=== PATIENT | female | born 1950 | race Caucasian/White ===

== ENCOUNTER → 2020-08-13 16:58 | Outpatient (CLI) | payer OTHER, SELFPAY ==
--- NOTE | ~2020-08-13 | MR_ITS ---
EXAMINATION: MR cervical spine wo con DATE: 08/13/2020 18:17 INDICATION: Neck pain. Bilateral cervical radiculopathy. TECHNIQUE: Magnetic resonance imaging (MRI) of the cervical spine was performed without intravenous c ontrast. Sequences included sagittal T2-weighted FSE, sagittal STIR FSE, sagittal T1-weighted FSE, ax ial MERGE, and axial T2-weighted FSE. COMPARISON: Cervical spine MRI 01/09/2013 FINDINGS: There is 2 mm anterolisthesis of C5 on C6, 2 mm retrolisthesis of C6 on C7, and 2 mm yann listhesis of C7 on T1. There is 5 mm levocurvature of cervical spine. There is healed interbody fusio n at C6-C7 and C7-T1. Vertebral body heights are normal. There is mildly decreased disc height at C4- C5 and severely decreased disc height at C5-C6. The spinal cord signal intensity is normal. The follo wing disc levels are specifically discussed: C2-C3: The disc does not extend beyond the endplate margin. There is no uncovertebral joint osteoarth ritis. There is mild right facet joint osteoarthritis. There is ankylosis of left facet joint with mo derate hypertrophy. There is mild left neural foraminal stenosis. There is no central canal stenosis. C3-C4: The disc is bulging. There is mild bilateral uncovertebral joint osteoarthritis. There is luiza re bilateral facet joint osteoarthritis. There is moderate bilateral neural foraminal stenosis. There is mild central canal stenosis. C4-C5: The disc is bulging. There is severe right and moderate left uncovertebral joint osteoarthriti s. There is severe bilateral facet joint osteoarthritis. There is moderate and mild left neural jazmyne inal stenosis. There is mild central canal stenosis. C5-C6: The disc is bulging. There is severe bilateral uncovertebral joint osteoarthritis. There is se katelin bilateral facet joint osteoarthritis. There is moderate right and mild left neural foraminal samuel nosis. There is mild central canal stenosis with ventral indentation of spinal cord. C6-C7: There is no uncovertebral joint hypertrophy. There is moderate right facet joint osteoarthriti s. There is mild right neural foraminal stenosis. There is no central canal stenosis. C7-T1: There is no uncovertebral joint osteoarthritis. There is severe left facet joint osteoarthriti s. There is ankylosis of right facet joint with severe hypertrophy. There is moderate right and mild left neural foraminal stenosis. There is no central canal stenosis. IMPRESSION: 1. Severe cervical spondylosis. 2. Anterior fusion procedures at C6-C7 and C7-T1. Reviewed, dictated and finalized at location A. ING DIRECTOR
== END ==
PROVIDERS: PCP Family Medicine Adolescent Medicine; Visit Provider Family Medicine Adolescent Medicine
DX: M47.813 Spondylosis without myelopathy or radiculopathy, cervicothoracic region (principal); Z98.1 Arthrodesis status; M48.03 Spinal stenosis, cervicothoracic region
CPT/HCPCS: 72141

== ENCOUNTER 2020-08-15 06:53 | Outpatient (NON) | payer OTHER, SELFPAY ==
[2020-08-16 06:44] LABS: SARS-CoV-2 RNA PCR Negative
== END 2020-08-15 06:54 ==
PROVIDERS: PCP Family Medicine Adolescent Medicine; Visit Provider Family Medicine Adolescent Medicine
DX: R68.89 Other general symptoms and signs (principal); Z20.828 Contact with and (suspected) exposure to other viral communicable diseases
CPT/HCPCS: 87635; C9803; U0003

== ENCOUNTER 2020-08-27 15:11 | Outpatient (CLI) | payer OTHER, SELFPAY ==
--- NOTE | ~2020-08-27 | MM_ITS ---
EXAMINATION: MM screening cris BI w ani HISTORY: Screening mammogram TECHNIQUE: Craniocaudal and mediolateral oblique 3-D tomosynthesis images were obtained and synthetic 2-D images were generated. Bilateral rotated lateral cc views. CAD analysis was submitted and interp reted. COMPARISON: 02/13/2018 bilateral digital screening mammogram 12/25/2016 diagnostic right digital mammogram and limited right breast ultrasound 12/17/2016 bilateral digital screening mammogram BREAST PARENCHYMAL COMPOSITION: There are scattered areas of fibroglandular density. FINDINGS: There are scattered bilateral benign calcifications. There is no evidence of suspicious mas s, calcification, or architectural distortion to suggest malignancy in either breast. There has been no suspicious interval change. IMPRESSION: 1. No mammographic evidence of malignancy. 2. Recommend routine screening mammography in one year. BI-RADS Category 2: Benign finding(s). Reviewed, dictated and finalized at location A. 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
== END 2020-08-27 15:12 | disposition home or self-care (01) ==
PROVIDERS: PCP Family Medicine Adolescent Medicine; Visit Provider Family Medicine Adolescent Medicine
DX: Z12.31 Encounter for screening mammogram for malignant neoplasm of breast (principal)
CPT/HCPCS: 77063; 77067

== ENCOUNTER 2023-07-09 09:53 | Emergency (ER) | payer OTHER, SELFPAY ==
[2023-07-09 10:30] VITALS: BP 169/84; PULSE 67; RESP 14; TEMP 36.4; O2SAT 97
--- NOTE | 2023-07-09 12:33 | ED.EYEPROB ---
HPI - Eye Problem General Chief complaint: Eye Problems Stated complaint: eye irritation Time Seen by Provider: 07/09/23 12:30 Source: patient Mode of arrival: ambulatory Limitations: no limitations History of Present Illness HPI Narrative: 72 years old white female was shoveling mulch last night, somehow got poked to the right eye by sharp decoration in the backyard, causing bleeding for a few seconds. Patient denied vision change, complaining of discomfort at the lateral side of the right eye. Which causing slight right frontal headache. She denies any fever, chills, vision change, nausea or vomiting Related Data Home Medications Medication Instructions Recorded Confirmed B-complex with vitamin C 1 tablet PO DAILY 12/22/21 06/17/23 beta carotene 10,000 unit capsule 10,000 unit PO DAILY 12/22/21 06/17/23 cholecalciferol (vitamin D3) 125 125 mcg PO DAILY 12/22/21 06/17/23 mcg (5,000 unit) capsule lukipgbgxgc-kxw-hwquiuzft-hrb 1 tablet PO DAILY 12/22/21 06/17/23 149-hyalur 500 mg-500 mg-66.7 mg tablet (Xyitcbpsgmx-Ychbzqglnpn-JMX (with antiox)) loperamide 2 mg tablet 2 mg PO .6 PRN 12/22/21 06/17/23 (Anti-Diarrheal (loperamide)) magnesium oxide 420 mg tablet 420 mg PO DAILY 12/22/21 06/17/23 omega-3 fatty acids 1,000 mg 1,000 mg PO DAILY PRN 12/22/21 06/17/23 capsule turmeric root extract 500 mg 500 mg PO WEEKLY 12/22/21 06/17/23 capsule valacyclovir 500 mg tablet 500 mg PO DAILY 12/22/21 06/17/23 biotin 5,000 mcg sublingual tablet 5,000 mcg sublingual .PRN 09/29/22 06/17/23 multivitamin (Daily Multi-Vitamin 1 tablet PO .PRN 09/29/22 06/17/23 tablet) piroxicam 20 mg capsule See Rx Instructions .Route .COMPLEX 09/29/22 06/17/23 Allergies Allergy/AdvReac Type Severity Reaction Status Date / Time hydrocodone Allergy Severe SEVERE Verified 07/09/23 12:01 HEADACH, DOES NOTHING FOR PAIN meperidine Allergy Severe SWELLING, Verified 07/09/23 12:01 HIVES, DIZZINESS, DRY HEAVES, DELIRIOUS FEELINGS Sulfa (Sulfonamide Allergy Unknown HEART Verified 07/09/23 12:01 Antibiotics) RACE, SYNCOPE 05/07/11 aspirin AdvReac Severe SEVERE Verified 07/09/23 12:01 STOMACH propoxyphene AdvReac Severe DIZZY Verified 07/09/23 12:01 fluoxetine AdvReac Intermediate Diarrhea Verified 07/09/23 12:01 mirtazapine AdvReac Intermediate Drowsiness Verified 07/09/23 12:01 sertraline AdvReac Intermediate Diarrhea Verified 07/09/23 12:01 diclofenac AdvReac Unknown Unknown Verified 07/09/23 12:01 duloxetine AdvReac Unknown Unknown Verified 07/09/23 12:01 morphine AdvReac Unknown Unknown Verified 07/09/23 12:01 oxycodone AdvReac Unknown Unknown Verified 07/09/23 12:01 pregabalin AdvReac Unknown Unknown Verified 07/09/23 12:01 tolmetin AdvReac Unknown Unknown Verified 07/09/23 12:01 topiramate AdvReac Unknown Unknown Verified 07/09/23 12:01 DEXTROMETHORPHAN HBR Allergy Unknown palpatation Uncoded 07/09/23 12:01 s PHENYLEPHRINE HCL Allergy Unknown palpatation Uncoded 07/09/23 12:01 s PSEUDOEPHEDRINE HCL Allergy Unknown palpatation Uncoded 07/09/23 12:01 s Review of Systems Review of Systems: All systems reviewed & are unremarkable except as noted in HPI and below PMFSH Past Medical History Medical History History of diverticulosis History of vocal cord paralysis (~03/2013) Surgical History Surgical History History of bilateral breast reduction surgery History of cervical spinal surgery 1992 Decompression, 2013 History of hand surgery Right History of hysterectomy History of suburethral sling procedure 2013 History of surgical fusion joint Hx of removal of cyst (~2014) finger Family History Family History Mother Family history of cardiomyopathy Social History Social
[2023-07-09] MEDS: TETANUS,DIPHTHERIA,AC PERTUSSIS ADULT (0.5 ML) BOOSTRIX IM (12:59)
== END 2023-07-09 13:58 | disposition left against medical advice (07) ==
PROVIDERS: Emergency Provider Emergency Medicine; PCP Family Medicine Adolescent Medicine
DX: S05.91XA Unspecified injury of right eye and orbit, initial encounter (principal); Z23 Encounter for immunization; Z90.710 Acquired absence of both cervix and uterus; Z98.1 Arthrodesis status; Z87.891 Personal history of nicotine dependence; W22.8XXA Striking against or struck by other objects, initial encounter; Y93.H2 Activity, gardening and landscaping
CPT/HCPCS: 90471; 90715; 99283

== ENCOUNTER → 2023-10-01 12:55 | Outpatient (CLI) | payer OTHER, SELFPAY ==
--- NOTE | ~2023-10-01 | MM_ITS ---
EXAMINATION: MM screening [facility] BI w ani HISTORY: Screening mammogram TECHNIQUE: Craniocaudal and mediolateral oblique 3-D tomosynthesis images were obtained and synthetic 2-D images were generated. CAD analysis was submitted and interpreted. COMPARISON: 08/27/2020, 02/17/2018, 12/25/2016, 12/17/2016 BREAST PARENCHYMAL COMPOSITION: There are scattered areas of fibroglandular density. FINDINGS: No suspicious mass, calcification, or architectural distortion are identified in either babar ast to suggest malignancy. There has been no suspicious interval change. IMPRESSION: 1. No mammographic evidence of malignancy. 2. Recommend routine screening mammography in one year. BI-RADS Category 1: Negative Reviewed, dictated and finalized at location A. L SANDER
--- NOTE | ~2023-10-01 | DEXA_ITS ---
Bone Density Report Name: NEYMAR MONTANA Age: 73 Sex: Female Ethnicity: White Date of : 1950 Indication: postmenopausal; screening for osteoporosis; height loss; inflammatory bowel disease; history of glucocorticoids; hysterectomy; Referring Provider: MAKENZIE SAHU Study: Bone densitometry was performed. Exam Date: October 01, 2023 Accession number: [id number] Bone Density: Region BMD T-score Z-score Classification AP Spine (L1-L4) 1.598 5.0 7.4 Normal Femoral Neck (Left) 0.946 0.9 3.0 Normal Total Hip (Left) 1.157 1.8 3.6 Normal Femoral Neck (Right) 0.926 0.7 2.8 Normal Total Hip (Right) 1.159 1.8 3.6 Normal Total Hip Mean 1.158 1.8 3.6 Normal World Health Organization criteria for BMD impression classify patients as: Normal (T-score at or above -1.0), Osteopenia (T-score between -1.0 and -2.5), or Osteoporosis (T-score at or below -2.5). 10-year Fracture Risk: FRAX not reported because: All T-scores for Spine Total, Hip Total, Femoral Neck at or above -1.0 Previous Exams: Region Exam Age BMD T-score BMD Change BMD Change Date g/cm2 vs Baseline vs Previous AP Spine(L1-L4) 10/01/2023 73 1.598 5.0 0.241* 0.108* 12/17/2016 66 1.491 4.0 0.133* 0.078* 12/16/2012 62 1.413 3.3 0.055* 0.055* 10/12/2008 58 1.358 2.8 Total Hip(Left) 10/01/2023 73 1.157 1.8 0.080* 0.045* 12/17/2016 66 1.112 1.4 0.035* 0.046* 12/16/2012 62 1.066 1.0 -0.010 -0.010 10/12/2008 58 1.077 1.1 Total Hip(Right) 10/01/2023 73 1.159 1.8 0.078* 0.067* 12/17/2016 66 1.093 1.2 0.011 -0.043* 12/16/2012 62 1.136 1.6 0.054* 0.054* 10/12/2008 58 1.082 1.1 *Denotes significance at 95% confidence level, LSC for AP Spine = 0.022 g/cm2, LSC for Total Hip = 0.027 g/cm2 Clinical Information Provided by Patient: Has taken Glucocorticoids Has used the following medications: HRT (i.e. estrogen/hormone therapy), Vitamin D, Calcium, MTV Has the following medical conditions: Inflammatory bowel diseases, Hysterectomy, BUDESONIDE- FOR COLITIS Patient maximum height was 63.0 Menopause Age: 31 No regular weight bearing exercise Drinks caffeinated beverages Onset of menses at age 11 Number of children 2 Impression: The patient has normal bone mass. The
== END ==
PROVIDERS: PCP Family Medicine Adolescent Medicine; Visit Provider Family Medicine Adolescent Medicine
DX: Z12.31 Encounter for screening mammogram for malignant neoplasm of breast (principal); Z78.0 Asymptomatic menopausal state
CPT/HCPCS: 77063; 77067; 77080

== ENCOUNTER 2024-01-10 13:58 | Outpatient (CLI) | payer OTHER, SELFPAY ==
--- NOTE | ~2024-01-10 | XR_ITS ---
EXAMINATION: XR chest 2V Exam Date/Time: 01/10/2024 14:33 CDT HISTORY: R06.09 - Other forms of dyspnea Comparison: 08/19/2015, report only. RESULT: Lines, tubes, and devices: Interbody device in the lower cervical spine. Lungs and pleura: Clear. Cardiomediastinal silhouette: Stable. Other: No acute osseous or upper abdominal finding. IMPRESSION: No acute cardiopulmonary process. Reviewed, dictated and finalized at location K.
--- NOTE | ~2024-01-10 | MR_ITS ---
EXAMINATION: MR cervical spine wo con DATE: 01/10/2024 14:29 INDICATION: Numbness and paresthesias of the right hand. TECHNIQUE: Magnetic resonance imaging (MRI) of the cervical spine was performed without intravenous c ontrast. COMPARISON: None FINDINGS: There is 7 degrees levocurvature of cervicothoracic spine. There is 2 mm anterolisthesis of C4 on C5 and C5 on C6. There are changes of anterior fusion procedure at C6-C7 and C7-T1 with discec tomies and healed interbody bone graft. There is mildly decreased disc height at C4-C5 and severely d ecreased disc height at C5-C6. The spinal cord signal intensity is normal. The following disc levels are specifically discussed: C2-C3: The disc does not extend beyond the endplate margin. There is no uncovertebral joint osteoarth ritis. There is ankylosis of the facet facet joints with mild right and severe left hypertrophy. Ther e is mild left neural foraminal stenosis. There is no central canal stenosis. C3-C4: The disc is bulging. There is mild right and moderate left uncovertebral joint osteoarthritis. There is severe bilateral facet joint osteoarthritis. There is moderate bilateral neural foraminal s tenosis. There is mild central canal stenosis. C4-C5: The disc is bulging. There is severe bilateral uncovertebral joint osteoarthritis. There is se katelin bilateral facet joint osteoarthritis. There is severe right and moderate left neural foraminal s tenosis. There is mild central canal stenosis. C5-C6: The disc is bulging. There is severe bilateral uncovertebral joint osteoarthritis. There is se katelin bilateral facet joint osteoarthritis. There is moderate right and mild left neural foraminal samuel nosis. There is mild central canal stenosis. C6-C7: There is no uncovertebral joint hypertrophy. There is mild bilateral facet joint hypertrophy. There is no neural foraminal stenosis. There is no central canal stenosis. C7-T1: There is no uncovertebral joint hypertrophy. There is severe bilateral facet joint hypertrophy . There is mild bilateral neural foraminal stenosis. There is no central canal stenosis. IMPRESSION: 1. Severe cervical spondylosis. 2. Anterior fusion procedure from C6 to T1. Reviewed, dictated and finalized at location E.
== END 2024-01-10 13:59 ==
PROVIDERS: PCP Family Medicine Adolescent Medicine; Visit Provider Family Medicine Adolescent Medicine
DX: R06.09 Other forms of dyspnea (principal); M43.02 Spondylolysis, cervical region; Z98.1 Arthrodesis status
CPT/HCPCS: 71046; 72141

== ENCOUNTER 2024-03-15 12:48 | Outpatient (CLI) | payer OTHER, SELFPAY ==
--- NOTE | ~2024-03-15 | XR_ITS ---
EXAMINATION: XR lumbar spine min 4V DATE: 03/15/2024 13:21 INDICATION: Low back pain. TECHNIQUE: 5 views of lumbar spine including standing views and flexion and extension views were obta ined. COMPARISON: None. FINDINGS: There is 9 degrees dextrocurvature of lumbar spine. There is no abnormal motion on flexion or extension. There is mild chronic anterior wedging of T12 vertebral body. There is severely decreas ed disc height at L2-L3 and L3-L4 and mildly decreased disc height at L4-L5 and L5-S1. There is multi level severe facet joint osteoarthritis. IMPRESSION: 1. Severe lumbar spondylosis. Reviewed, dictated and finalized at location A.
--- NOTE | ~2024-03-15 | CT_ITS ---
EXAMINATION: CT cervical spine wo con DATE: 03/15/2024 13:21 INDICATION: Neck pain. Cervical spondylosis. TECHNIQUE: Computed tomography (CT) of the cervical spine was performed without intravenous contrast. Automated exposure control and iterative reconstruction technique were employed. The dose-length pro duct was 207.86 mGy-cm. COMPARISON: Cervical spine radiograph 03/15/2024 FINDINGS: There is 6 degrees levocurvature of cervicothoracic spine. There is kyphosis of cervical sp ine. There is 2 mm anterolisthesis of C4 on C5 and C5 on C6. There are changes of anterior fusion pro cedures at C6-C7 and C7-T1 with healed interbody bone graft. There is mildly decreased disc height at C4-C5 and severely decreased disc height at C5-C6 and T1-T2. The following disc levels are specifica lly discussed: C2-C3: There is ankylosis of the uncovertebral joints with mild hypertrophy. There is ankylosis of th e facet joints with severe left hypertrophy. There is mild left neural foraminal stenosis. There is n o central canal stenosis. C3-C4: There is severe right and moderate left uncovertebral joint osteoarthritis. There is severe bi lateral facet joint osteoarthritis. There is moderate bilateral neural foraminal stenosis. There is m ild central canal stenosis. C4-C5: There is severe right and moderate left uncovertebral joint osteoarthritis. There is severe bi lateral facet joint osteoarthritis. There is moderate right and mild left neural foraminal stenosis. There is mild central canal stenosis. C5-C6: There is severe bilateral uncovertebral joint osteoarthritis. There is severe bilateral facet joint osteoarthritis. There is moderate bilateral neural foraminal stenosis. There is mild central ca nal stenosis. C6-C7: There is mild left uncovertebral joint hypertrophy. There is ankylosis of the facet joints wit h mild hypertrophy. There is no neural foraminal stenosis. There is no central canal stenosis. C7-T1: There is no uncovertebral joint hypertrophy. There is ankylosis of the facet joints with moder ate hypertrophy. There is mild lateral neural foraminal stenosis. There is no central canal stenosis. IMPRESSION: 1. Severe cervical spondylosis. 2. Anterior and posterior fusion at C2-C3, C6-C7, and C7-T1. Reviewed, dictated and finalized at location A.
--- NOTE | ~2024-03-15 | XR_ITS ---
EXAMINATION: XR cervical spine 4-5V DATE: 03/15/2024 13:21 INDICATION: Cervical spondylosis. TECHNIQUE: 6 views of cervical spine including flexion and extension views were obtained. COMPARISON: CT 03/15/2024 FINDINGS: There is kyphosis of cervical spine. There is 8 degrees levocurvature of cervical spine. Th ere is no abnormal motion with flexion or extension. There is 2 mm anterolisthesis of C4 on C5 and C5 on C6. There is mildly decreased disc height at C4-C5 and severely decreased disc height at C5-C6. T here is interbody fusion at C6-C7 and C7-T1. There is multilevel severe uncovertebral joint and facet joint osteoarthritis. There is mild central canal stenosis at C4-C5 and C5-C6. No prevertebral soft tissue swelling. IMPRESSION: 1. Severe cervical spondylosis, worst at C5-C6. 2. Interbody fusion at C6-C7 and C7-T1. Reviewed, dictated and finalized at location A.
== END 2024-03-15 12:49 ==
LOC: MICIMG 12:49
PROVIDERS: PCP Family Medicine Adolescent Medicine; Visit Provider Neurological Surgery
DX: M47.896 Other spondylosis, lumbar region (principal); M47.892 Other spondylosis, cervical region; Z98.1 Arthrodesis status
CPT/HCPCS: 72050; 72110; 72125

== ENCOUNTER 2024-07-28 16:28 | Emergency (ER) | payer OTHER, SELFPAY ==
--- NOTE | ~2024-07-28 | XR_ITS ---
XR foot RT min 3V Ordering provider: Sebas Snow MD History: . rt 1st toe pain s/p fall today . Comparison: None. FINDINGS: BONES: No acute fracture or dislocation. Calcaneus spur. JOINT SPACES: Narrowing of the tarsometatarsal joints. No tarsal coalition. SOFT TISSUES: Normal. IMPRESSION: No acute osseous abnormality of the right foot. Polyarticular osteoarthritic changes. Reviewed, dictated and finalized at location A.
--- NOTE | ~2024-07-28 | XR_ITS ---
XR hand RT min 3V Ordering provider: Austin Dumont APRN History: . rt hand pain s/p fall today . Comparison: None. FINDINGS: BONES: Lucencies in the distal metaphysis of the middle phalanx of the third and fourth fingers which may indicate a fracture. Better seen in the lateral view. Postoperative changes seen in the second f mandy distal interphalangeal joint area. JOINT SPACES: Narrowing of the proximal and distal interphalangeal joints. Narrowing of the first car pometacarpal, metacarpophalangeal and interphalangeal joints. Narrowing of the radiocarpal and multip le intercarpal joints. SOFT TISSUES: Normal. IMPRESSION: Possible fractures in the distal metaphysis of the middle phalanx of the third and fourth fingers. Fo llow-up advised. Postoperative changes in the second finger. Polyarticular osteoarthritic changes. Reviewed, dictated and finalized at location A. IMPRESSION: Possible fractures in the distal metaphysis of the middle phalanx of the third and fourth fingers. Follow-up advised. Postoperative changes in the second finger. Polyarticular osteoarthritic changes.
--- NOTE | 2024-07-28 16:33 | ED.FALL ---
HPI - Fall General Chief Complaint: Fall Stated Complaint: r big toe,knees,ring finger injury from fall Time Seen by Provider: 07/28/24 16:33 Source: patient Mode of arrival: ambulatory Limitations: no limitations History of Present Illness HPI Narrative: Jessica is a 74-year-old female patient presenting to the clinic today with complaints of right great toe pain, bilateral knee pain, and her right ring finger injury from falling approximately 1 hour ago. She reports most of her pain is to the right 4th finger and to the right great toe. The knees are little bumped up but she does not think that they are needing x-rayed. Thinks she tripped over a wire in the [facility]. Denies hitting her head or any loss of consciousness. Related Data Home Medications Medication Instructions Recorded Confirmed B-complex with vitamin C 1 tablet PO DAILY 12/22/21 07/28/24 beta carotene 10,000 unit capsule 10,000 unit PO DAILY 12/22/21 07/28/24 cholecalciferol (vitamin D3) 125 125 mcg PO DAILY 12/22/21 07/28/24 mcg (5,000 unit) capsule jdynsggflnc-hiy-ofywucgvp-hrb 1 tablet PO DAILY 12/22/21 07/28/24 149-hyalur 500 mg-500 mg-66.7 mg tablet (Jmrdmxthsje-Damojytllco-MLN (with antiox)) loperamide 2 mg tablet 2 mg PO .6 12/22/21 07/28/24 (Anti-Diarrheal (loperamide)) magnesium oxide 420 mg tablet 420 mg PO DAILY 12/22/21 07/28/24 omega-3 fatty acids 1,000 mg 1,000 mg PO DAILY 12/22/21 07/28/24 capsule turmeric root extract 500 mg 500 mg PO WEEKLY 12/22/21 07/28/24 capsule biotin 5,000 mcg sublingual tablet 5,000 mcg sublingual .PRN 09/29/22 07/28/24 multivitamin (Daily Multi-Vitamin 1 tablet PO .PRN 09/29/22 07/28/24 tablet) furosemide 40 mg tablet 80 mg PO DAILY 06/05/24 07/28/24 furosemide 40 mg tablet 80 mg PO QAM 06/05/24 07/28/24 Allergies Allergy/AdvReac Type Severity Reaction Status Date / Time hydrocodone Allergy Severe SEVERE Verified 07/28/24 16:36 HEADACH, DOES NOTHING FOR PAIN meperidine Allergy Severe SWELLING, Verified 07/28/24 16:36 HIVES, DIZZINESS, DRY HEAVES, DELIRIOUS FEELINGS Sulfa (Sulfonamide Allergy Severe HEART Verified 07/28/24 16:36 Antibiotics) RACE, SYNCOPE 05/07/11 aspirin AdvReac Severe SEVERE Verified 07/28/24 16:36 STOMACH propoxyphene AdvReac Severe DIZZY Verified 07/28/24 16:36 fluoxetine AdvReac Intermediate Diarrhea Verified 07/28/24 16:36 mirtazapine AdvReac Intermediate Drowsiness Verified 07/28/24 16:36 sertraline AdvReac Intermediate Diarrhea Verified 07/28/24 16:36 diclofenac AdvReac Unknown Unknown Verified 07/28/24 16:36 duloxetine AdvReac Unknown Unknown Verified 07/28/24 16:36 morphine AdvReac Unknown Unknown Verified 07/28/24 16:36 oxycodone AdvReac Unknown Unknown Verified 07/28/24 16:36 pregabalin AdvReac Unknown Unknown Verified 07/28/24 16:36 tolmetin AdvReac Unknown Unknown Verified 07/28/24 16:36 topiramate AdvReac Unknown Unknown Verified 07/28/24 16:36 DEXTROMETHORPHAN HBR AdvReac Intermediate palpatation Uncoded 07/28/24 16:36 s PHENYLEPHRINE HCL AdvReac Intermediate palpatation Uncoded 07/28/24 16:36 s PSEUDOEPHEDRINE HCL AdvReac Intermediate palpatation Uncoded 07/28/24 16:36 s Review of Systems Review of Systems: Pertinent positives per HPI. Patient denies any fever, chills, rash, headache, visual changes, dizziness, cough, runny nose, sore throat, shortness of breath, chest pain, palpitations, nausea, vomiting, diarrhea, constipation, abdominal pain, or any urinary issues. [facility] Past Medical History Medical History History of diverticulosis History of vocal cord paralysis (~03/2013) Surgical History Surgical History History of bilateral breast reduction surgery History of cervical spinal surgery 1992 Decompression, 2013 History of hand surgery Right History of hysterectomy History of suburethral sling procedure 2013 History of surgical fusion joint Hx of removal of cyst (~2014) finger Family History Family History Mother Family history of cardiomyopathy Social History Social History Smoking packs per day: 1 Smoking cigarettes per day: 20.0 Years smoked: 20 Smoking pack-years: 20.00 Smoking status: Former smoker Second hand tobacco smoke exposure: No Alcohol intake: current Alcohol use details: Socially Substance use: never Substance use type: does not use Lack of Transportation: No Lack of Food: Never True Current Housing: I Have Housing Concerned About Future Housing: No Difficulty Paying Gas/Electric Bills: No Difficulty Paying for Meds: No Currently Unemployed: No Education: Associate Degree Difficulty w/ Childcare or Family Care: No Living arrangements: alone Occupation/Education: retired Gender identity (if verbalized by the patient): Female Spiritual care concerns: No Agree to blood products: Yes Comments At the time of my signature, I reviewed and agree with the nursing past medical, surgical, social, and family history. There is no relevant family history pertinent to the patient complaint. Exam Narrative: General: Well-developed, well nourished, in no apparent distress Head: Normocephalic, atraumatic. Cardio: Regular rate and rhythm, s1 and s2 normal, no murmur appreciated. Resp: Clear to auscultation bilaterally, no rhonchi, rales, wheezing or rubs. Musculoskeletal: No deformity, swelling and bruising noted over the right 4th finger and the right great toe, tender to palpation over the right 4th finger and the right great toe, mild tenderness to palpation over the anterior knees, grossly normal range of motion, muscle strength strong and equal, peripheral pulse strong, no edema, no cyanosis, normal gait and station Course Course Emergency Course: Portions of this record may have been created with voice recognition software. Level of Care: Express Care Visit Vital Signs Vital signs: Vital Signs Temperature 36.3 C L 07/28/24 16:44 Pulse Rate 77 07/28/24 16:44 Respiratory Rate 16 07/28/24 16:44 Blood Pressure 135/76 07/28/24 16:44 Pulse Oximetry 99 07/28/24 16:44 Oxygen Delivery Room Air 07/28/24 16:44 Temperature 36.3 C L 07/28/24 16:44 Pulse Rate 77 07/28/24 16:44 Respiratory Rate 16 07/28/24 16:44 Blood Pressure 135/76 07/28/24 16:44 Pulse Oximetry 99 07/28/24 16:44 Oxygen Delivery Room Air 07/28/24 16:44 Vital signs reviewed MDM - Fall MDM Narrative Medical decision making narrative: At the time of visit patient is resting comfortably on the exam table. Patient appears to be nontoxic. Diagnostics: X-ray of the right hand and the right foot were performed. X-ray of the right hand shows possible fractures of the 3rd and 4th middle phalanx. Patient is complaining of pain to the 4th finger. Will place and metal finger splint and have her follow-up with her primary care doctor. X-ray of the right foot is negative for any acute fracture or malalignment. Plan: I suspect patient may have a right finger fracture, knee contusions, as well as a sprain right great toe. Supportive measures were discussed with the patient and they voiced understanding discharge instructions and agrees to treatment plan. Return precautions reviewed Differential Diagnosis Differential diagnosis: Likely other (Ground level fall, finger fracture, finger contusion, finger sprain, toe fracture, toe contusion, toe sprain, knee contusion) Discharge Plan Discharge Clinical Impression: Finger fracture Qualifiers: Encounter type: initial encounter Finger: ring finger Fracture type: closed Phalanx: middle Fracture alignment: nondisplaced Laterality: right Qualified Code(s): S62.654A - Nondisplaced fracture of middle phalanx of right ring finger, initial encounter for closed fracture Contusion of knee Qualifiers: Encounter type: initial encounter Laterality: unspecified laterality Qualified Code(s): S80.00XA - Contusion of unspecified knee, initial encounter Sprain of great toe of right foot Qualifiers: Encounter type: initial encounter Qualified Code(s): S93.501A - Unspecified sprain of right great toe, initial encounter Patient Disposition: Home, Self-Care Condition: Stable Instructions: Antibiotic Form, Finger Fracture (ED), Contusion in Adults (ED), Foot Sprain (ED) Additional Instructions: X-ray of the right 3rd and 4th finger have possible fractures. Recommend follow-up with your primary care doctor in 1 week for repeat x-rays Rest, ice, elevate, and metal finger splint as discussed Tylenol/motrin for pain as discussed. Gradually bear weight Follow up with your PCP if symptoms persist more than 1 week. Prescriptions: No Action loperamide [Anti-Diarrheal (loperamide)] 2 mg tablet 2 mg PO .6 cholecalciferol (vitamin D3) 125 mcg (5,000 unit) capsule 125 mcg PO DAILY omega-3 fatty acids 1,000 mg capsule 1,000 mg PO DAILY magnesium oxide 420 mg tablet 420 mg PO DAILY B-complex with vitamin C Tablet 1 tablet PO DAILY hkhoeaiw-asz-uwpqe-nai992-mtxg [Drvbvg-Kratz-QEN (with antiox)] 500-500-66.7 mg tablet 1 tablet PO DAILY turmeric root extract 500 mg capsule 500 mg PO WEEKLY beta carotene 10,000 unit capsule 10,000 unit PO DAILY Rx Instructions: administer with a meal biotin 5,000 mcg tablet, sublingual 5,000 mcg sublingual .PRN multivitamin [Daily Multi-Vitamin] Tablet 1 tablet PO .PRN furosemide 40 mg tablet 80 mg PO DAILY Rx Instructions: 40 mg orally PRN; Wegovy 0.25 mg/0.5 mL pen injector 0.25 mg subcut WEEKLY Qty: 2 0RF Rx Instructions: administer weeks 1 through 4 of therapy ipratropium bromide 42 mcg (0.06 %) spray,non-aerosol 2 spray intranasal TID Qty: 45 3RF Rx Instructions: administer into each nostril furosemide 40 mg tablet 80 mg PO QAM valacyclovir 500 mg tablet 2,000 mg PO BID Qty: 8 6RF amlodipine 5 mg tablet 5 mg PO DAILY Qty: 90 2RF Hold Instructions: .Provider Order acetaminophen-codeine 300-60 mg tablet 1 tablet PO Q4H PRN (Reason: pain) Qty: 180 2RF estradiol 0.1 mg/24 hr patch semiweekly See Rx Instructions .ROUTE .COMPLEX Qty: 24 1RF Dose Instruction: APPLY 1 [id number],ALTERNATING WITH 1 PATCH X4DAYS EACH WEEK FOR 3 WEEKS PER 4 WEEK CYCLE Rx Instructions: APPLY 1 [id number],ALTERNATING WITH 1 PATCH X4DAYS EACH WEEK FOR 3 WEEKS PER 4 WEEK CYCLE modafinil 100 mg tablet 100 mg PO QAM Qty: 30 5RF gabapentin 300 mg capsule 900 mg PO QID Qty: 1080 2RF bupropion HCl 300 mg tablet extended release 24 hr 300 mg PO QAM Qty: 90 2RF lisinopril 40 mg tablet 40 mg PO DAILY Qty: 90 2RF chlordiazepoxide HCl 10 mg capsule 10 mg PO QID Qty: 120 5RF Ozempic 0.25 mg or 0.5 mg (2 mg/3 mL) pen injector 0.25 mg subcut WEEKLY Qty: 3 0RF Rx Instructions: for 4 weeks phentermine 37.5 mg tablet 37.5 mg PO DAILY Qty: 30 3RF Rx Instructions: must administer 30 minutes before or 1-2 hours after breakfast fcjpiuzqti-ykscmovhoo-cvs-cod 40-269-56-30 mg capsule 1 cap PO TID PRN (Reason: headache) Qty: 90 3RF alprazolam 1 mg tablet See Rx Instructions PO QHS PRN (Reason: sleep) Qty: 60 4RF Rx Instructions: 1 or 2 hs orally every day at bedtime PRN; Follow-up/Referrals: Sebas Snow MD [Primary Care Provider] - Time of Disposition: 17:50 Quality NIHSS Nursing Documentation ED NIHSS nursing documentation: reviewed/agree
[2024-07-28 16:44] VITALS: BP 135/76; PULSE 77; RESP 16; TEMP 36.3; O2SAT 99
== END 2024-07-28 18:00 | disposition home or self-care (01) ==
PROVIDERS: Emergency Provider Nurse Practitioner Family; PCP Family Medicine Adolescent Medicine
DX: S62.654A Nondisplaced fracture of middle phalanx of right ring finger, initial encounter for closed fracture (principal); W18.09XA Striking against other object with subsequent fall, initial encounter; S80.02XA Contusion of left knee, initial encounter; S80.01XA Contusion of right knee, initial encounter; S93.501A Unspecified sprain of right great toe, initial encounter; Z87.891 Personal history of nicotine dependence
CPT/HCPCS: 29130; 73130; 73630; 99214; G0463

== ENCOUNTER 2024-09-19 11:15 | Outpatient (CLI) | payer OTHER, SELFPAY ==
--- NOTE | ~2024-09-19 | XR_ITS ---
EXAMINATION: XR hand RT 2V DATE: 09/19/2024 11:35 INDICATION: Right hand injury. TECHNIQUE: 2 views of right hand on 3 radiographs were obtained. COMPARISON: Right hand radiographs 07/28/2024 FINDINGS: There is ulnar subluxation of first proximal phalanx with respect to the metacarpal. There is an avulsion fracture of a dorsal osteophyte of base of fourth distal phalanx with 2 mm distraction , new from 07/28/2024. There is severe osteoarthritis of distal radioulnar joint, lunate-capitate join t, and first carpometacarpal joint. There is moderate osteoarthrosis of triscaphe joint and many of t he metacarpophalangeal joints and interphalangeal joints. There is severe osteoarthritis of first met acarpophalangeal joint, first interphalangeal joint, fifth proximal interphalangeal joint, and third- fifth distal interphalangeal joints. There are changes of arthrodesis of second distal interphalangea l joint with single screw. IMPRESSION: 1. Avulsion fracture of a dorsal osteophyte of base of fourth distal phalanx, new from 07/28/2024. 2. Polyarticular osteoarthritis. 3. Arthrodesis of second distal interphalangeal joint. Reviewed, dictated and finalized at location A. IS THERAPIST IMPRESSION: 1. Avulsion fracture of a dorsal osteophyte of base of fourth distal phalanx, n ew from 07/28/2024. 2. Polyarticular osteoarthritis. 3. Arthrodesis of second distal interphalangeal joint.
== END 2024-09-19 11:16 | disposition home or self-care (01) ==
PROVIDERS: PCP Family Medicine Adolescent Medicine; Visit Provider Family Medicine Adolescent Medicine
DX: M19.041 Primary osteoarthritis, right hand (principal); S62.664D Nondisplaced fracture of distal phalanx of right ring finger, subsequent encounter for fracture with routine healing; X58.XXXD Exposure to other specified factors, subsequent encounter
CPT/HCPCS: 73120

== ENCOUNTER 2025-02-15 12:40 | Outpatient (CLI) | payer OTHER, SELFPAY ==
--- NOTE | ~2025-02-15 | XR_ITS ---
AP view of the pelvis and AP and lateral views of the bilateral hips Clinical history: Pain Findings: No acute fracture or dislocation is seen. Osseous alignment is anatomic. Bilateral hip and SI joint spaces are preserved. Soft tissues are unremarkable. Impression: No significant abnormality is seen. Reviewed, dictated and finalized at location . Impression: No significant abnormality is seen.
== END 2025-02-15 12:41 | disposition home or self-care (01) ==
PROVIDERS: PCP Family Medicine Adolescent Medicine; Visit Provider Family Medicine Adolescent Medicine
DX: M25.551 Pain in right hip (principal); M25.552 Pain in left hip
CPT/HCPCS: 73521

== ENCOUNTER 2025-02-26 11:26 | Outpatient (CLI) | payer OTHER, SELFPAY ==
--- NOTE | ~2025-02-26 | MR_ITS ---
MRI of the lumbar spine Clinical History: Radiculopathy Technique: Axial T2-weighted images, and sagittal T1-weighted, T2-weighted, and and T2 fat-sat images were acquired. Findings: No acute fracture seen. There is 2 mm retrolisthesis of L1 over L2. There is 3 mm retrolist hesis of L2 over L3. There is 5 mm retrolisthesis of L3 over L4. No suspicious bone marrow signal abn ormality seen. At L1-L2, there is moderate to advanced degenerative disc narrowing. There is diffuse disc bulge with moderate to advanced facet arthropathy. There is moderate to advanced central canal stenosis/thecal sac compression. There is severe bilateral neural foraminal narrowing. At L2-L3, there is severe degenerative disc narrowing. Disc bulge and severe facet arthropathy result in moderate to severe spinal canal stenosis/thecal sac compression. There is severe bilateral neural foraminal narrowing. At L3-L4, there is severe degenerative disc narrowing. Disc bulge and severe facet arthropathy result in severe spinal canal stenosis/thecal sac compression and severe bilateral neural foraminal narrowi ng. At L4-L5, there is disc bulge and severe facet arthropathy. There is severe spinal canal stenosis/the nicik sac compression and severe bilateral neural foraminal narrowing. At L5-S1, there is diffuse disc bulge with severe facet arthropathy. No central canal stenosis. There is severe bilateral neural foraminal narrowing. Paravertebral soft tissues are unremarkable. Impression: Severe degenerative spondylosis throughout the lumbar spine. There is multilevel severe spinal canal stenosis and severe bilateral neural foraminal narrowing. 2 mm retrolisthesis of L1 over L2 3 mm retrolisthesis of L2 over L3. 5 mm retrolisthesis of L3 over L4. Reviewed, dictated and finalized at [facility]. Impression: Severe degenerative spondylosis throughout the lumbar spine. There is multileve l severe spinal canal stenosis and severe bilateral neural foraminal narrowing. 2 mm retrolisthesis of L1 over L2 3 mm retrolisthesis of L2 over L3. 5 mm retrolisthesis of L3 over L4.
== END 2025-02-26 11:27 | disposition home or self-care (01) ==
PROVIDERS: PCP Family Medicine Adolescent Medicine; Visit Provider Family Medicine Adolescent Medicine
DX: M47.26 Other spondylosis with radiculopathy, lumbar region (principal)
CPT/HCPCS: 72148

== ENCOUNTER 2025-02-27 23:15 | Emergency (ER) | payer OTHER, SELFPAY ==
--- NOTE | ~2025-02-27 | XR_ITS ---
Portable chest x-ray Comparison: 01/10/2024 Clinical History: Hypertension Findings: Lungs are clear, without focal consolidation or pleural effusion. Cardiomediastinal silho uette is stable. Bones and soft tissues are unremarkable. Impression: Normal chest. Reviewed, dictated and finalized at location . Impression: Normal chest.
--- NOTE | ~2025-02-27 | CT_ITS ---
Non-contrast CT scan of the Abdomen and Pelvis Clinical indication: Abdominal pain Technique: 2.5 mm axial scans were obtained through the abdomen and pelvis without intravenous or or al contrast. Dose reduction technique was used on this scan by utilizing automated exposure control a nd iterative reconstruction technique. The dose-length product (DLP) was 668.77 mGy-cm. Findings: Images through the lung bases reveal no abnormalities. There is no evidence of renal or ureteral calculi. The kidneys and the ureters are nondilated. The liver, spleen, pancreas, and adrenals appear normal. Small gallstone. There are atherosclerotic c alcifications of the aorta. . There is no evidence of bowel obstruction. Images through the pelvis were performed. There is no evidence of ascites or lymphadenopathy. Urinary bladder unremarkable. No pelvic mass seen. Impression: No acute abnormality. Cholelithiasis. Reviewed, dictated and finalized at [facility]. Impression: No acute abnormality. Cholelithiasis.
--- OUTSIDE RECORDS SUMMARY | 2025-02-27 23:17 | XMS_ITS | Clinical Summary ---
Author Organization [facility] Address [address] [place] [address] Care Team Providers Care Deicer Inspector Pneumatic Name Role Phone Sebas Snow MD Primary Care Provider + Source Comments [facility] [employer],non-owned Affiliates and Associated Physician Practices is amultiple site organization consisting of ambulatory clinics and hospital sitesin [place], [place], [place] and [place]. This disclosure is being madepursuant to the Care Everywhere program and may not contain all information available regarding this patient. Last updated 18.[facility] [employer] Allergies Active Allergy Reactions Criticality Noted Date Comments Meperidine Swelling 04/13/2013 Dextromethorphan Hbr Other 04/13/2013 jittery Hydrocodone Headache 04/13/2013 Methadone Itching 04/13/2013 Sulfa Drugs Palpitations 04/13/2013 Medications * Be aware that medications may not be up to date on this document. Alwaysverify current medications with the patient. lisinopril (PRINIVIL; ZESTRIL) 20 MG tablet Active DULoxetine (CYMBALTA) 30 MG capsule Active piroxicam (FELDENE) 20 MG capsule Active Furosemide (LASIX PO) 20 or 40 mg prn Active butalbital-acet aminophen-caffe ine (FIORICET) 50-325-40 MG tablet Prn Active acetaminophen-c odeine (TYLENOL #3) 300-30 MG tablet Prn Active zolpidem (AMBIEN) 10 MG tablet Take 10 mg by mouth nightly as needed. Active diazepam (VALIUM) 10 MG tablet Take 1 Tab by mouth 3 times daily as needed for Anxiety or Spasms. 30 Tab 0 05/01/2013 Active Active Problems Problem Noted Date Diagnosed Date Arthrodesis status 05/03/2013 Ulnar neuropathy 03/21/2013 OA (osteoarthritis) 03/21/2013 Lumbosacral spondylosis without myelopathy 02/13 Cervical spondylosis without myelopathy 02/14/20 13 HTN (hypertension) 02/02/2013 Headache 02/02/2013 Overview (08/04/2015): Neck pain 02/02/2013 Social History Tobacco Use Types Packs/Day Years Used Date Smoking Tobacco: Former Cigarettes Q uit: 04/13/1992 Smokeless Tobacco: Never Alcohol Use Standard Drinks/Week Comments No 0 (1 standard drink = 0.6 oz pur e alcohol) Comments No Sex and Gender Information Value Date Recorded Sex Assigned at Not on file 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 Gender Identity Not on file Sexual Orientation Not on file Last Filed Vital Signs Vital Sign Reading Time Taken Comments Blood Pressure 131/99 04/14/2013 11:55 AM CDT Pulse 73 04/14/2013 11:55 AM CDT Temperature 36.4 C (97.5 F) 04/14/2013 11:55 AM CDT Respiratory Rate 16 04/14/2013 11:55 AM CDT Oxygen Saturation 96% 04/14/2013 11:55 AM CDT Inhaled Oxygen Concentration - - Weight 70.3 kg (155 lb) 04/13/2013 7:27 AM CDT Height 160 cm (5' 3) 04/13/2013 7:27 AM CDT Body Mass Index 27.46 04/13/2013 7:27 AM CDT Plan of Treatment Health Maintenance Due Date Last Done Comments BONE DENSITY TESTING 1950 HEPATITIS C SCREENING 07/20/1966 DTAP/TDAP/TD VACCINES (1 - Tdap) 1967 PNEUMOCOCCAL VACCINE 50+ (1 of 1 - PCV) 1998 ZOSTER VACCINE (1 of 2) 1998 Respiratory Syncytial Virus (RSV) Vaccine Pt: or over 60 yrs (1 - 1-dose 75+ series) 2023 COVID-19 VACCINE ( - 2023-2 5 season) 2024 DEPRESSION SCREENING 09/27/2024 INFLUENZA VACCINE (Season Ended) 2025 HEPATITIS B VACCINE Aged Out No longe r eligible based on patient's age to complete this topic HIB VACCINE Aged Out No longer eligi ble based on patient's age to complete this topic HPV VACCINE Aged Out No longer eligi ble based on patient's age to complete this topic MENINGOCOCCAL (Group B) VACC INE SHARED DECISION-MAKING Aged Out No longer eligibl e based on patient's age to complete this topic MENINGOCOCCAL GROUPS A/C/Y/W VACCINE Aged Out No longer eligible b ased on patient's age to complete this topic Medical Devices Implanted Type Area Training Director Device Identifier Shelf Expiration Date Model / Serial / Lot Wax Bone Implanted:Qty : 1 on 04/13/2013 by Juan C Taylor MD at [facility] N/A: Spine Cervical [employer] 04/27/2017 [id number] / / [id number] Putty Grft Bone Dbm Progenix 1cc Implanted:Qty : 1 on 04/13/2013 by Juan C Taylor MD at [facility] N/A: Spine Cervical Spinal [employer] 11/24/2015 [id number] / / [id number] Space Peek 7 X 16 X 14mm Implanted:Qty : 1 on 04/13/2013 by Juan C Taylor MD at [facility] N/A: Spine Cervical Medtronic [employer] 12/05/2020 [id number] / / [id number] Advance Directives * FULL RESUSCITATION (Latest Code Status on File) Date Activated Date Inactivated Comments 04/13/2013 11:57 AM 04/14/2013 5:49 PM Care Teams Deicer Inspector Pneumatic Relationship Specialty Start Date End Date Sebas Snow MD [address] [place] [id number] PCP - General Family Medicine 02/27/13
--- NOTE | 2025-02-27 23:20 | ECG_ITS ---
Test Date: 2025-02-27 23:28:55 Measurements Intervals [place] Rate: 78 P: 55 [place]: 157 QRS: 27 QRSD: 96 T: 22 QT: 363 QTc: 414 Interpretive Statements SINUS RHYTHM POSSIBLE LEFT ATRIAL ENLARGEMENT ANTERIOR INFARCT, AGE INDETERMINATE CONSIDER INFERIOR INFARCT, AGE INDETERMINATE BASELINE ARTIFACT- I, II, III, AVR, AVL ,AVF ABNORMAL ECG No previous ECG available for comparison Electronically Signed On 02-28-2025 06:24:45 CDT by Joe Patino D.O.
[2025-02-27 23:28] VITALS: BP 186/98; PULSE 79; RESP 16; TEMP 36.6; O2SAT 97
--- NOTE | 2025-02-27 23:38 | PC.NURSE ---
Pt verbalized that the burning in her chest / upper abdominal area is back again.
[2025-02-28 00:13] VITALS: BP 206/93; PULSE 81; RESP 16; O2SAT 99
--- NOTE | 2025-02-28 01:16 | ED_ITS ---
HPI - Recheck/Abnormal Lab/Rx General Chief Complaint: Recheck/Abnormal Lab/Rx Stated Complaint: htn Time Seen by Provider: 02/28/25 01:10 Source: patient and RN notes reviewed Limitations: no limitations History of Present Illness HPI narrative: Patient presents with concern for hypertension. She started taking a new antiinflammatory medication, etodolac, BID. SHe has been taking it for approximately 8 days for her spinal issues and she thinks it is causing side effects that include a burning sensation across chest as well as diffuse generalized abdominal pain, primarily upper. Denies rolly chest pain. She will often check her BP at home when she is feeling jittery and it is sometimes low. She saw her PCP Dr Velasquez today to follow up on some recent MRI results on her spinal pain but forgot to discuss the concerns about the medication side effets. She is supposed to be seeing a neurosurgeon soon, appointment pending. Her BP at the PCP's office was Systolic 140s, attributed to pain. She states her eyes feel shaky but denies any double vision. States she feels woozy but not dizzy. Took her medication at 7:30pm and felt unwell so checked her BP, 160/80 at about 9:30pm. Took 2 aspirin and rechecke at 10:30pm, 208/97. She feels flushed and with head pounding. Diagnosed with hypertension for which she is on lisinopril 40mg and also budesonide for colitis. She is bloated and burping. Has had diarrhea. No change in urine output. No shortness of breath but did feel like she was hyperventilating due to how she felt. She had previously been on amlodipine but this medication has since been discontinued. THe pill is [place] green so she has noticed color of urine changed. Related Data Home Medications ?Medication ?Instructions ?Recorded ?Confirmed ?Last Taken ?Type B-complex with vitamin C 1 tablet PO DAILY 12/22/21 03/02/25 Unknown History beta carotene 10,000 unit capsule 10,000 unit PO DAILY 12/22/21 03/02/25 Unknown History cholecalciferol (vitamin D3) 125 125 mcg PO DAILY 12/22/21 03/02/25 Unknown History mcg (5,000 unit) capsule bjhxhctxriz-lrw-psddgfadb-hrb 1 tablet PO DAILY 12/22/21 03/02/25 Unknown History 149-hyalur 500 mg-500 mg-66.7 mg tablet (Rmqlngujbyc-Gotdxxhugio-WVY (with antiox)) loperamide 2 mg tablet 2 mg PO .6 12/22/21 03/02/25 Unknown History (Anti-Diarrheal (loperamide)) magnesium oxide 420 mg tablet 420 mg PO DAILY 12/22/21 03/02/25 Unknown History omega-3 fatty acids 1,000 mg 1,000 mg PO DAILY 12/22/21 03/02/25 Unknown History capsule turmeric root extract 500 mg 500 mg PO WEEKLY 12/22/21 03/02/25 Unknown History capsule biotin 5,000 mcg sublingual tablet 5,000 mcg sublingual .PRN 09/29/22 03/02/25 Unknown History multivitamin (Daily Multi-Vitamin 1 tablet PO .PRN 09/29/22 03/02/25 Unknown History tablet) Allergies Allergy/AdvReac Type Severity Reaction Status Date / Time hydrocodone Allergy Severe SEVERE Verified 03/02/25 10:43 HEADACH, DOES NOTHING FOR PAIN meperidine Allergy Severe SWELLING, Verified 03/02/25 10:43 HIVES, DIZZINESS, DRY HEAVES, DELIRIOUS FEELINGS Sulfa (Sulfonamide Allergy Severe HEART Verified 03/02/25 10:43 Antibiotics) RACE, SYNCOPE 05/07/11 aspirin AdvReac Severe SEVERE Verified 03/02/25 10:43 STOMACH propoxyphene AdvReac Severe DIZZY Verified 03/02/25 10:43 fluoxetine AdvReac Intermediate Diarrhea Verified 03/02/25 10:43 mirtazapine AdvReac Intermediate Drowsiness Verified 03/02/25 10:43 sertraline AdvReac Intermediate Diarrhea Verified 03/02/25 10:43 diclofenac AdvReac Unknown Unknown Verified 03/02/25 10:43 duloxetine AdvReac Unknown Unknown Verified 03/02/25 10:43 morphine AdvReac Unknown Unknown Verified 03/02/25 10:43 oxycodone AdvReac Unknown Unknown Verified 03/02/25 10:43 pregabalin AdvReac Unknown Unknown Verified 03/02/25 10:43 tolmetin AdvReac Unknown Unknown Verified 03/02/25 10:43 topiramate AdvReac Unknown Unknown Verified 03/02/25 10:43 DEXTROMETHORPHAN HBR AdvReac Intermediate palpatation Uncoded 03/02/25 10:43 s PHENYLEPHRINE HCL AdvReac Intermediate palpatation Uncoded 03/02/25 10:43 s PSEUDOEPHEDRINE HCL AdvReac Intermediate palpatation Uncoded 03/02/25 10:43 s PMFSH Past Medical History Medical History Colitis Essential (primary) hypertension Chronic back pain History of vocal cord paralysis (~03/2013) History of diverticulosis Surgical History Surgical History History of surgical fusion joint Hx of removal of cyst (~2014) finger History of hand surgery Right History of suburethral sling procedure 2013 History of bilateral breast reduction surgery History of hysterectomy History of cervical spinal surgery 1991 Decompression, 2012 Family History Family History Mother Family history of cardiomyopathy Social History Social History Smoking packs per day: 1 Smoking cigarettes per day: 20.0 Years smoked: 20 Smoking pack-years: 20.00 Smoking status: Former smoker Second hand tobacco smoke exposure: No Alcohol intake: current Alcohol use details: Socially Substance use: never Substance use type: does not use Lack of Transportation: No Lack of Food: Never True Current Housing: I Have Housing Concerned About Future Housing: No Difficulty Paying Gas/Electric Bills: No Difficulty Paying for Meds: No Currently Unemployed: No Education: Associate Degree Difficulty w/ Childcare or Family Care: No Living arrangements: alone Occupation/Education: retired Gender identity (if verbalized by the patient): Female Spiritual care concerns: No Agree to blood products: Yes Exam 2 Narrative: GENERAL: Well-appearing, well-nourished, and in no acute distress. HEAD: Normocephalic, atraumatic. EYES: Non injected, non icteric ENT: Nares clear, no rhinorrhea or epistaxis. Gross auditory acuity intact. NECK: Supple. No meningismus. CHEST: Speaking in full sentences. No respiratory distress. HEART: Regular rate and rhythm. . ABDOMEN: Soft, nondistended. No rigidity or guarding. Not peritoneal EXTREMITIES: Normal range of motion. No lower extremity edema. SKIN: Warm, dry, no rash. NEURO: No focal deficits. Alert and oriented. Answering questions. Following commands. Normal speech without aphasia or dysarthria. PSYCH: Normal mood and affect. Course Vital Signs Vital signs: Vital Signs Temperature 97.9 F 02/27/25 23:28 Pulse Rate 79 02/27/25 23:28 Respiratory Rate 16 02/27/25 23:28 Blood Pressure 186/98 H 02/27/25 23:28 Pulse Oximetry 97 02/27/25 23:28 Temperature 97.9 F 02/27/25 23:28 Pulse Rate 83 02/28/25 07:10 Respiratory Rate 18 02/28/25 07:10 Blood Pressure 162/65 H 02/28/25 07:10 Pulse Oximetry 98 02/28/25 07:10 MDM - Recheck/Abnormal Lab/Rx MDM Narrative Medical decision making narrative: Patient presents with concern for hypertension. She recently started taking etodalac (Lodine). She has been having generalized abdominal pain, diarrhea, cramping, and a burning sensation in her chest. In the emergency department she is afebrile vital signs notable for hypertension. Possible medication side effect. IN regards to the hypertension, will assess for end organ dysfunction that would cause concern for hypertensive emergency/urgency. CBC generally unremarkable except for mild abnormalities on differential. Mild hyponatremia but only a delta of 4 from previous. Microscopic hematuria. Renal function normal. Troponin normal. Patient is reassessed approximately 4:15 a.m.. The burning in her chest is better. Her blood pressure is improving but still hypertensive. She is still endorsing abdominal pain and bloating. Given that the etodolac that she started taking can have GI side effects, this time will proceed with CT imaging. Simethacone and Bentyl ordered as well. Patient also notes that she started retaking Trintellix/Vortioxetine 3 days ago. The combination of the etodolac and Trintellix can cause GI issues although this would typically be bleeding which she has not had. CT abd pelvis with contrast is ordered however she declines this as she states the contrast makes her feel strangely. Noncontrast would be her preferred study and this is ordered although not as sensitive for the issue in question (but low suspicion for this as she has not endorsed GI bleeding). Patient is reassessed approximately 6:45 a.m. She continues to have multiple concerns: Her blood pressure has been variable (162/65 at my exam), she now has a headache and she worries about taking her home Fioricet as this bothers her stomach. She feels like if she could just have some Sprite and sit on the toilet to have a bowel movement. She now states that she is chilled and it feels like there was icy Hot across her chest. Her back pain is bothering her as is her shoulder pain. These are chronic issues. She notes that she normally takes gabapentin. I asked if she would like a dose of her morning gabapentin and morning antihypertensive but she declines. In sum however, no evidence of end organ damage. This patient presents with abdominal pain or unclear etiology. A CT scan was performed to evaluate for potential causes of the abdominal pain, however, neither the clinical exam nor the CT has identified an emergent etiology for the abdominal pain. Specifically, given the benign exam, the laboratory studies, and unremarkable CT, I have a very low suspicion for appendicitis, ischemic bowel, bowel perforation, or any other life threatening disease. I have discussed with the patient the level of uncertainty with undifferentiated abdominal pain and clearly explained the need to follow-up as noted on the discharge instructions, or return to the Emergency Department immediately if the pain worsens, develops fever, persistent and uncontrolled vomiting, or for any new symptoms or concerns. Discharged with Rx for simethicone and bentyl. Lab Data Attestation: I reviewed the patient's lab results. 02/28/25 01:56 02/28/25 01:56 Labs: Lab Results 02/28/25 Range/Units 01:56 WBC 7.8 (4.5-10.0) K/mm3 RBC 4.25 (4.2-5.4) M/mm3 Hgb 13.3 (12.0-15.0) g/dL Hct 39.5 (37.0-47.0) % MCV 92.9 (80-100) fl MCH 31.3 (26-34) pg MCHC 33.7 (32-36) g/dl RDW 13.0 (11.5-14.5) % Plt Count 220 (150-375) k/mm3 MPV 9.2 (7.4-10.4) fl Immature Gran % (Auto) 0.3 (0-0.5) % Neut % (Auto) 82.6 H (45.5-73.1) % Lymph % (Auto) 12.8 L (18.3-44.2) % [place] % (Auto) 3.4 (2.6-8.5) % Eos % (Auto) 0.4 (0-4.4) % Baso % (Auto) 0.5 (0.2-1.2) % Lymph # (Auto) 0.99 (0.9-3.2) K/mm3 [place] # (Auto) 0.3 (0.1-0.6) K/mm3 Eos # (Auto) 0.0 (0-0.3) K/mm3 Baso # (Auto) 0.0 (0.0-0.1) K/mm3 Abs Immat Gran (auto) 0.02 (0.00-0.031) K/mm3 Absolute Neuts (auto) 6.4 (1.3-6.7) K/mm3 Absolute Nucleated RBC 0.000 (0.0-0.012) K/mm3 Nucleated RBC % 0.0 (0.0-0.2) % Sodium 131 L (137-145) mmol/L Potassium 4.1 (3.4-5.0) mmol/L Chloride 97 L (98-107) mmol/L Carbon Dioxide 24 (22-30) mmol/L Anion Gap 10 (4-12) mmol/L BUN 13 (7-17) mg/dL Creatinine 0.73 (0.7-1.0) mg/dL Estim Creat Clear Calc 53 ml/min Estimated GFR > 60 (59 - ) Glucose 113 H (65-110) mg/dL Calcium 9.3 (8.4-10.2) mg/dL Total Bilirubin 0.5 (0.2-1.3) mg/dL AST 32 (14-36) U/L ALT 19 (6-35) U/L Alkaline Phosphatase 92 (38-126) U/L Troponin I < 0.012 (0.000-0.034) ng/mL Total Protein 7.4 (6.3-8.2) g/dL Albumin 4.7 (3.5-5.1) g/dL Urine Color Yellow (Yellow) Urine Appearance Clear (Clear) Urine pH 6.0 (5.0-9.0) Ur Specific [place] 1.010 (1.001-1.035) Urine Protein Negative (Negative) mg/dL Urine Glucose (UA) Negative (Negative) mg/dL Urine Ketones Negative (Negative) mg/dL Ur Blood (Man) Trace (Negative) Urine Nitrate Negative (Negative) Urine Bilirubin Negative (Negative) Urine Urobilinogen 0.2 (<2.0) mg/dL Leukocyte Esterase Rfl Negative (Negative) JULI/UL Urine RBC 11-20 H (0-2) /hpf Urine WBC 0-5 (0-3) /hpf Ur Squamous Epith Cells None seen (Few) /hpf Urine Bacteria None seen /hpf Urine Casts 3-5 Imaging Data Radiologist's impression: Impression: No acute abnormality. Cholelithiasis. Impression: Normal chest. ECG Data EKG #1: Attestation: I personally reviewed and interpreted this ECG as follows: ECG completion date: 02/27/25 ECG completion time: 23:28 Interpretation: Normal sinus rhythm at a rate of 78 beats per minute. WV interval 157. QRS 96. QT/QTC 363/414. Good R-wave progression across the precordial leads. T-wave flattening in 3 but otherwise upright in contiguous inferior leads 2 and AVF. No other T-wave inversions. Discharge Plan Discharge Clinical Impression: Hypertension, Cholelithiasis, Medication side effects, Abdominal pain Patient Disposition: Home Condition: Stable Instructions: Antibiotic Form, Gallstones (ED), Abdominal Pain (ED), Hypertension (ED) Additional Instructions: Follow-up with primary care physician. Return to the emergency department with any new or worsening symptoms. Patient Language: Rwandan Prescriptions: New simethicone 125 mg capsule 125 mg PO DAILY PRN (Reason: abdominal distention) Qty: 14 0RF dicyclomine 10 mg capsule 10 mg PO BID PRN (Reason: abdominal pain) Qty: 10 0RF No Action loperamide [Anti-Diarrheal (loperamide)] 2 mg tablet 2 mg PO .6 cholecalciferol (vitamin D3) 125 mcg (5,000 unit) capsule 125 mcg PO DAILY omega-3 fatty acids 1,000 mg capsule 1,000 mg PO DAILY magnesium oxide 420 mg tablet 420 mg PO DAILY B-complex with vitamin C Tablet 1 tablet PO DAILY qimtssue-hna-jeawy-hru714-dpon [Detvcr-Vpjdg-YHF (with antiox)] 500-500-66.7 mg tablet 1 tablet PO DAILY turmeric root extract 500 mg capsule 500 mg PO WEEKLY beta carotene 10,000 unit capsule 10,000 unit PO DAILY Rx Instructions: administer with a meal biotin 5,000 mcg tablet, sublingual 5,000 mcg sublingual .PRN multivitamin [Daily Multi-Vitamin] Tablet 1 tablet PO .PRN ipratropium bromide 42 mcg (0.06 %) spray,non-aerosol 2 spray intranasal TID Qty: 45 3RF Rx Instructions: administer into each nostril Trintellix 20 mg tablet 20 mg PO DAILY Qty: 90 1RF gabapentin 300 mg capsule 900 mg PO QID Qty: 1080 2RF furosemide 40 mg tablet See Rx Instructions .ROUTE .COMPLEX Qty: 90 2RF Dose Instruction: TAKE 1 TABLET (40 MG) ORALLY DAILY NEEDED Rx Instructions: TAKE 1 TABLET (40 MG) ORALLY DAILY NEEDED budesonide 3 mg capsule,delayed,extend.release See Rx Instructions .ROUTE .COMPLEX Qty: 180 1RF Dose Instruction: TAKE 1 CAPSULE (3 MG) BY MOUTH TWICE A DAY Rx Instructions: TAKE 1 CAPSULE (3 MG) BY MOUTH TWICE A DAY lisinopril 40 mg tablet 40 mg PO DAILY Qty: 90 2RF zdcobvryeu-cjfjbnkini-nir-cod [id number] mg capsule 1 cap PO TID PRN (Reason: headache) Qty: 90 1RF estradiol 0.1 mg/24 hr patch semiweekly See Rx Instructions .ROUTE .COMPLEX Qty: 24 1RF Dose Instruction: APPLY 1 [id number],ALTERNATING WITH 1 PATCH X4DAYS EACH WEEK FOR 3 WEEKS PER 4 WEEK CYCLE Rx Instructions: APPLY 1 [id number],ALTERNATING WITH 1 PATCH X4DAYS EACH WEEK FOR 3 WEEKS PER 4 WEEK CYCLE bupropion HCl 300 mg tablet extended release 24 hr 300 mg PO QAM Qty: 90 2RF lorazepam 1 mg tablet 2 mg PO QHS PRN (Reason: sleep) Qty: 60 5RF etodolac 500 mg tablet 500 mg PO BID Qty: 60 2RF Follow-up/Referrals: Sebas Snow MD [Primary Care Provider] - Time of Disposition: 06:53
--- OUTSIDE RECORDS SUMMARY | 2025-02-28 01:34 | XMS_ITS | Patient Health Record ---
Author Organization [facility] [place] ([address]) Address [address] [facility] [address] [place] [address] Care Team Providers Care Fisher Lobster Name Role Phone Sebas Velasquez Primary Care Provider Unavail able Dr. Houston Siddiqui Unavailable [phone] Reason For Referral Reason M54.12 Referring Provider First Name Sebas Referring Provider Last Name Eva Referred Organization [facility] Referred Provider Houston Siddiqui Referred Address [address] [place], [place],[address], Referred Provider Specialty Neurology Referral Priority Routine Medications Medication SIG (Take, Route, Frequency, Duration) Notes Start Date End Date Status Lisinopril 40 MG 1 tablet Orally Once a day Active buPROPion HCl ER (XL) 300 MG 1 tablet in the morning Orally Once a day Active chlordiazePOXIDE HCl 10 MG 1 capsule Ora lly Twice a day Active Vitamin D 50 MCG (1999) 1 tablet Oral ly Once a day Active Piroxicam 20 MG 1 capsule with food Orally Once a day Active Fioricet 50-300-40 MG 1 capsule as neede d Orally every 4 hrs Active Gabapentin 400 MG 1 capsule Orally 4 times daily Active Problems Problem Type SNOMED Code ICD Code Onset Dates Problem Status W/U Status Risk Notes Problem Lesion of ulnar nerve (030215303) Lesion of ulnar nerve, left upper limb (G56.22) Active confirmed Problem 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) Fusion of spine, cervical region (M43.22) Active confirmed Problem Cervical radiculopathy (30532116) Radiculopathy , cervical region (M54.12) Active confirmed Problem 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, 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) Active confirmed Encounters Encounter Location Date Provider Diagnosis [facility] [address] [place] [address] 04/20/2024 Houston Siddiqui Radiculopathy, cervical region M54.12 ; Fusion of spine, cervical region M43.22 ; 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, sequela S64.11XS and Lesion of ulnar nerve, left upper limb G56.[address] [address] 04/19/2024 Houston Siddiqui [facility] [address] [place] [address] 04/27/2024 Houston Siddiqui Assessments Encounter Date Diagnosis (ICD Code) Assessment Notes Treatment Notes Treatment Clinical Notes Section Notes 04/20/2024 Fusion of spine, cervical region (ICD-10 - M43.22) 04/20/2024 Radiculopathy, cervical region (ICD-10 - M54.12) 04/20/2024 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
--- OUTSIDE RECORDS SUMMARY | 2025-02-28 01:34 | XMS_ITS ---
Author Organization [facility] [place] ([address]) Address [address] [address] Care Team Providers Care Radio Intelligence Operator Name Role Phone Sebas Velasquez Primary Care Provider Unavail Dr. Houston Hernandez [facility] [phone] REASON FOR VISIT neuro Encounters Encounter Location Date Provider Diagnosis [facility] - [address] [address] 05/09/2024 Houston Siddiqui Plan Of Treatment No Information Progress Notes * Glenroy MONTANAOB:1950 (74 yo F)Acc No.[id number]:05/09/2024 FLOORHAND Neuro Patient: Jessica JEWELL Provider: Germaine Siddiqui MD :1950 A ge:73 Y S ex:Female Date:05/09/2024 Address:[address] [place] [address] [address] [facility] Pcp:Sebas Velasquez Subjective: * Chief Complaints: * 1 . Neuro. * Medical History: Objective: * Vitals: Assessment: Plan: * Treatment: * Billing Information: * Visit Code: * Procedure Codes: * Electronic signature of Dr. Houston Siddiqui MD on 02/28/2025 at 01:34 AM CDT Sign off status: Pending * Provider: Germaine Siddiqui MD Date: 0 05/09/2024 Generated for Printi ng/Faxing/eTransmitting on: 0 02/28/2025 01:34 AM CDT
--- OUTSIDE RECORDS SUMMARY | 2025-02-28 01:34 | XMS_ITS | Clinical Summary ---
Author Organization [facility] Address [address] [place] [address] Care Team Providers Care Welfare Eligibility Interviewer Name Role Phone Sebas Snow MD Primary Care Provider + Source Comments [facility],non-owned Affiliates and Associated Physician Practices is amultiple site organization consisting of ambulatory clinics and hospital sitesin [place], [place], [place] and [place]. This disclosure is being madepursuant to the Care Everywhere program and may not contain all information available regarding this patient. 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 Gender Identity Not on file Sexual Orientation [...] this topic Medical Devices Implanted Type Area Trim Machine Adjuster Device Identifier Shelf Expiration Date Model / Serial / Lot Wax Bone Implanted:Qty : 1 on 04/13/2013 by Juan C Taylor MD at [facility] N/A: Spine Cervical [employer] 04/27/2017 [id number] / / [id number] Putty Grft Bone Dbm Progenix 1cc Implanted:Qty : 1 on 04/13/2013 by Juan C Taylor MD at [facility] N/A: Spine Cervical Spinal [employer] 11/24/2015 [id number] / / [id number] Space Peek 7 X 16 X 14mm Implanted:Qty : 1 on 04/13/2013 by Juan C Taylor MD at [facility] N/A: Spine Cervical Medtronic Sofamor [employer] 12/05/2020 [id number] / / [id number] Advance Directives * FULL RESUSCITATION (Latest Code Status on File) Date Activated Date Inactivated Comments 04/13/2013 11:57 AM 04/14/2013 5:49 PM Care Teams Welfare Eligibility Interviewer Relationship Specialty Start Date End Date Sebas Snow MD [address] [place] [id number] PCP - General Family Medicine 02/27/13
[2025-02-28 02:05] LABS: Basophils Percent Auto 0.5 % (0.2-1.2); Eosinophils Percent Auto 0.4 % (0-4.4); Hematocrit 39.5 % (37.0-47.0); Hemoglobin 13.3 g/dL (12.0-15.0); Immature Granulocyte Absolute 0.02 K/mm3 (0.00-0.031); Immature Granulocyte Percent A 0.3 % (0-0.5); Lymphocytes Absolute Auto 0.99 K/mm3 (0.9-3.2); Lymphocytes Percent Auto 12.8 % (18.3-44.2); Mean Corpuscular HGB Conc 33.7 g/dl (32-36); Mean Corpuscular Hemoglobin 31.3 pg (26-34); Mean Corpuscular Volume 92.9 fl (80-100); Mean Platelet Volume 9.2 fl (7.4-10.4); Monocytes Absolute Auto 0.3 K/mm3 (0.1-0.6); Monocytes Percent Auto 3.4 % (2.6-8.5); Neutrophils Absolute Auto 6.4 K/mm3 (1.3-6.7); Neutrophils Percent Auto 82.6 % (45.5-73.1); Platelet Count Result 220 k/mm3 (150-375); Red Blood Count 4.25 M/mm3 (4.2-5.4); White Blood Count 7.8 K/mm3 (4.5-10.0)
[2025-02-28 02:15] LABS: Alanine Aminotransferase 19 U/L (6-35); Albumin Level 4.7 g/dL (3.5-5.1); Alkaline Phosphatase 92 U/L (38-126); Anion Gap 10 mmol/L (4-12); Aspartate Amino Transferase 32 U/L (14-36); Bilirubin,Total 0.5 mg/dL (0.2-1.3); Blood Urea Nitrogen 13 mg/dL (7-17); Calcium 9.3 mg/dL (8.4-10.2); Carbon Dioxide 24 mmol/L (22-30); Chloride 97 mmol/L (98-107); Estimated CRCL calculation 53 ml/min; Estimated Glomerular Filt Rate > 60; Glucose 113 mg/dL (65-110); Potassium 4.1 mmol/L (3.4-5.0); Sodium 131 mmol/L (137-145); Total Protein 7.4 g/dL (6.3-8.2)
[2025-02-28 02:23] LABS: Add Urine Microscopic? YES; Appearance Urine Clear (Clear); Bacteria Urine None Seen /hpf; Bilirubin Urine Negative (Negative); Blood Urine Trace (Negative); Color Urine Yellow (Yellow); Glucose Urine UA Negative (Negative); Ketones Urine Negative (Negative); Leukocyte Esterase Ur Negative LEU/UL (Negative); Nitrate Urine Negative (Negative); Protein Urine Negative (Negative); Squamous Epithelial Cell Urine None Seen /hpf (Few); Urobilinogen Urine 0.2 mg/dL (<2.0); WBC Urine 0-5 /hpf (0-3)
[2025-02-28 02:27] LABS: Troponin I < 0.012 ng/mL (0.000-0.034)
[2025-02-28 02:32] VITALS: BP 171/56; PULSE 75; RESP 16; O2SAT 96
[2025-02-28] MEDS: LABETALOL HCL INJ 100 MG/20 ML VIAL 10 MG IV PUSH (02:42)
[2025-02-28] MEDS: FAMOTIDINE 20 MG/2 ML VIAL IV PUSH (02:42)
[2025-02-28 03:20] VITALS: BP 162/61; PULSE 73; O2SAT 98
[2025-02-28] MEDS: DICYCLOMINE HCL 10 MG CAPSULE PO (04:24)
[2025-02-28] MEDS: SIMETHICONE 125 MG CHEW TAB PO (04:25)
[2025-02-28 05:40] VITALS: BP 158/88
[2025-02-28] MEDS: BELLADONNA ALK/PHENOB ELIX 10 ML, MAG HYDROX/ALUMINUM HYD/SIMETH 30 ML, LIDOCAINE 2% VI... PO (07:02)
[2025-02-28 07:10] VITALS: BP 162/65; PULSE 83; RESP 18; O2SAT 98
== END 2025-02-28 07:25 | disposition home or self-care (01) ==
PROVIDERS: Emergency Provider Student in an Organized Health Care Education/Training Program; PCP Family Medicine Adolescent Medicine
DX: R10.84 Generalized abdominal pain (principal); I10 Essential (primary) hypertension; K80.20 Calculus of gallbladder without cholecystitis without obstruction; T39.395A Adverse effect of other nonsteroidal anti-inflammatory drugs [NSAID], initial encounter; Z98.1 Arthrodesis status; Z87.891 Personal history of nicotine dependence; Z90.710 Acquired absence of both cervix and uterus; R94.31 Abnormal electrocardiogram [ECG] [EKG]
CPT/HCPCS: 36415; 71045; 74176; 80053; 81001; 84484; 85025; 93005; 96374; 96375; 99284; A9270

== ENCOUNTER 2025-05-30 13:34 | Outpatient (CLI) | payer OTHER, SELFPAY ==
--- NOTE | ~2025-05-30 | XR_ITS ---
XR lumbar spine min 4V 05/30/2025 14:05 Indication: Spinal stenosis Procedure: 5 views of the lumbar spine Comparison: 03/15/2024 Findings: There is disc narrowing at all lumbar levels. There is grade 1 degenerative spondylolisthesis at L4-5. There is levoscoliosis centered at the thoracolumbar junction. There is advanced multilevel facet hypertrophy. No acute fracture, subluxation or dislocation. No significant alteration of alignment with flexion and extension. Sacral foramen are symmetric. Impression: 1: Severe lumbar spondylosis. Reviewed, dictated and finalized at location O. Impression: 1: Severe lumbar spondylosis.
== END 2025-05-30 13:35 | disposition home or self-care (01) ==
LOC: MICIMG 13:37
PROVIDERS: PCP Family Medicine Adolescent Medicine; Visit Provider Nurse Practitioner Adult Health
DX: M47.816 Spondylosis without myelopathy or radiculopathy, lumbar region (principal); M48.00 Spinal stenosis, site unspecified
CPT/HCPCS: 72110

== ENCOUNTER 2025-07-13 13:27 | Outpatient (CLI) | payer OTHER, SELFPAY ==
--- NOTE | ~2025-07-13 | XR_ITS ---
EXAMINATION: XR hip RT min 2V, 07/13/2025 13:32 CDT HISTORY: R hip pain COMPARISON: No comparisons available. Findings: No acute fracture or malalignment. Moderate degenerative changes with calcific tendinopathy Soft tissues unremarkable. Impression: No acute fracture or malalignment. Reviewed, dictated and finalized at location P. Impression: No acute fracture or malalignment.
== END 2025-07-13 13:28 | disposition home or self-care (01) ==
LOC: MICIMG 13:29
PROVIDERS: PCP Family Medicine Adolescent Medicine; Visit Provider Neurological Surgery
DX: M16.11 Unilateral primary osteoarthritis, right hip (principal); M65.251 Calcific tendinitis, right thigh
CPT/HCPCS: 73502

== ENCOUNTER 2025-08-08 15:04 | Outpatient (CLI) | payer OTHER, SELFPAY ==
--- NOTE | ~2025-08-08 | MM_ITS ---
EXAMINATION: MM screening cris BI w ani HISTORY: Screening TECHNIQUE: Craniocaudal and mediolateral oblique 3-D tomosynthesis images were obtained and synthetic 2-D images were generated. CAD analysis was submitted and interpreted. COMPARISON: Comparison to multiple prior studies sequentially, with oldest reviewed study dated 08/19/2015. BREAST PARENCHYMAL COMPOSITION: There are scattered areas of fibroglandular density. FINDINGS: There is no evidence of suspicious mass, calcification, or architectural distortion to suggest malignancy in either breast. There has been no suspicious interval change. IMPRESSION: 1. No mammographic evidence of malignancy. 2. Recommend routine screening mammography in one year. BI-RADS Category 1: Negative Reviewed, dictated and finalized at location B. LE WIRE INSERTER
== END 2025-08-08 15:05 | disposition home or self-care (01) ==
LOC: MICIMG 15:05
PROVIDERS: PCP Family Medicine Adolescent Medicine; Visit Provider Family Medicine Adolescent Medicine
DX: Z12.31 Encounter for screening mammogram for malignant neoplasm of breast (principal)
CPT/HCPCS: 77063; 77067

== ENCOUNTER 2025-09-05 12:50 | Outpatient (CLI) | payer OTHER, SELFPAY ==
--- NOTE | ~2025-09-05 | XR_ITS ---
XR lumbar spine 2-3V Indication: Spinal stenosis; POST OP 6 WKS Comparison: None Findings: Mild dextroconvex scoliosis, posterior laminectomy defect noted. Moderate loss of vertebral height throughout. No fracture or subluxation. Moderate to severe loss of disc height throughout. Soft tissues unremarkable Impression: No acute abnormality. Reviewed, dictated and finalized at location P. CIPAL QUALITY ENGINEER Impression: No acute abnormality.
== END 2025-09-05 12:51 | disposition home or self-care (01) ==
PROVIDERS: PCP Internal Medicine; Visit Provider Neurological Surgery
DX: M48.00 Spinal stenosis, site unspecified (principal)
CPT/HCPCS: 72100

== ENCOUNTER 2025-09-11 14:28 | Outpatient (CLI) | payer OTHER, SELFPAY ==
--- OUTSIDE RECORDS SUMMARY | 2024-05-09 11:30 | XMS_ITS ---
Author Organization Count Includes [facility] [place] ([address]) Address [address] [address] Care Team Providers Care Bander And Cellophaner Machine Name Role Phone Sebas Velasquez Primary Care Provider Unavail Dr. 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 Neuro. * Medical History: Objective: * Vitals: Assessment: Plan: * Treatment: * Billing Information: * Visit Code: * Procedure Codes: * Electronic signature of Dr. Houston Siddiqui MD on 09/11/2025 at 04:57 PM BUNGHOLE BORER Sign off status: Pending * Provider: Germaine Siddiqui MD Date: 0 05/09/2024 Generated for Printi ng/Faxing/eTransmitting on: 1 11/12/2024 04:57 PM BUNGHOLE BORER
--- NOTE | ~2025-09-11 | US_ITS ---
EXAMINATION: US carotid duplex BI DATE: 09/11/2025 15:14 INDICATION: Carotid bruit TECHNIQUE: Grayscale, color Doppler, and pulsed Doppler images of the cervical carotid arteries were obtained. The degree of vessel stenosis is placed in one of the following categories: normal, <50%, 50-69%, >=70% but less than near- occlusion, near-occlusion, or total occlusion. Note that percent stenosis relative to normal distal artery lumen diameter is indirectly measured from velocity measurements as described by Raymundo, et al. Radiology 2003; 229:340-346. COMPARISON: None. FINDINGS: RIGHT: The right common carotid artery (CCA) peak systolic velocity (PSV) is 97 cm/s. The right internal carotid artery (ICA) PSV is 105 cm/s. The right ICA end- diastolic velocity (EDV) is 33 cm/s. The right ICA/CCA PSV ratio is 1.1. Grayscale and color Doppler images yield an estimate of <50% diameter reduction from plaque in the ICA. The external carotid artery (ECA) PSV is 100 cm/s. There is antegrade flow in the right vertebral artery. LEFT: The left CCA PSV is 96 cm/s. The left ICA PSV is 98 cm/s. The left ICA EDV is 31 cm/s. The left ICA/CCA PSV ratio is 1.0. Grayscale and color Doppler images yield an estimate of <50% diameter reduction from plaque in the ICA. The ECA PSV is 84 cm/s. There is antegrade flow in the left vertebral artery. IMPRESSION: 1. <50% stenosis in the right internal carotid artery. 2. <50% stenosis in the left internal carotid artery. Reviewed, dictated and finalized at location A. [employer]
--- OUTSIDE RECORDS SUMMARY | 2025-09-11 16:57 | XMS_ITS | Patient Health Record ---
Author Organization [facility] [address] ([address]) Address [address] [facility] [address] [place] [address] Care Team Providers Care First Aid Director Name Role Phone Sebas Velasquez Primary Care Provider Unavail Dr. 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
--- OUTSIDE RECORDS SUMMARY | 2025-09-11 16:58 | XMS_ITS | Clinical Summary ---
Author Organization [facility] Address [address] [place] [id number] Care Team Providers Care Animal Surgeon Name Role Phone Gustavo Kate MD Primary Care Provider [phone] Allergies Active Allergy Reactions Criticality Noted Date Comments Aspirin Nausea and Vomiting High 02/27/2025 Meperidine Swelling 03/02/2025 Dextromethorphan Other (see comment) 04/13/2013 jittery Diclofenac Unknown 02/27/2025 Duloxetine Unknown 02/27/2025 Etodolac Other (see comment) 04/11/2025 Hypertensive, severe bloating, felt like blood was boiling Fluoxetine Diarrhea High 02/27/2025 Hydrocodone Headache 04/13/2013 Methadone Itching 03/02/2025 Mirtazapine Fatigue High 02/27/2025 Morphine Unknown 02/27/2025 Oxycodone Unknown 02/27/2025 Phenylephrine Palpitations High 02/27/2025 Pregabalin Unknown 02/27/2025 Propoxyphene Dizziness High 02/27/2025 Pseudoephedrine Palpitations High 02/27/2025 Sertraline Diarrhea High 02/27/2025 Sulfa Antibiotics Palpitations Low 03/02/2025 Tolmetin Unknown 02/27/2025 Topiramate Unknown 02/27/2025 Medications budesonide EC (ENTOCORT EC) 3 MG capsule Take 1 capsule (3 mg total) by mouth every morning. 02/04/20 25 Active gabapentin (NEURONTIN) 300 MG capsule Take 2 capsules (600 mg total) by mouth 4 (four) times daily. 03/19/20 25 Active dicyclomine (BENTYL) 10 MG capsule Take 2 capsules (20 mg total) by mouth 2 (two) times a day. 02/29/20 25 Active LORazepam (ATIVAN) 1 MG tablet Take 2 tablets (2 mg total) by mouth nightly at bedtime. 03/07/20 25 Active butalbital-acet aminophen-caffe ine-codeine (FIORICET WITH CODEINE) 38-383-05-30 MG capsule TAKE 1 CAPSULE BY MOUTH THREE TIMES DAILY NEEDED FOR HEADACHE 03/19/20 Active furosemide (LASIX) 40 MG tablet Take 1 tablet (40 mg total) by mouth daily. 04/19/20 25 Active pantoprazole EC (PROTONIX) 40 MG tablet Take 1 tablet (40 mg total) by mouth every morning. 06/11/20 25 Active Biotin 1000 MCG Chew Tab Active Vitamin D3 125 mcg Tab Take 1 tablet (125 mcg total) by mouth daily. Active loperamide (IMODIUM) 2 MG capsule Take 1 capsule (2 mg total) by mouth 4 (four) times daily as needed for Diarrhea. Active acetaminophen (TYLENOL) 500 MG tablet Take 1 tablet (500 mg total) by mouth every 6 (six) hours as needed for Pain. Active lactobacillus (FLORANEX) tablet Take 1 tablet by mouth every other day. Active estradiol (CLIMARA) 0.05 MG/24HR Place 1 patch (0.05 mg total) onto the skin 2 (two) times a week. Active oxyCODONE immediate release (ROXICODONE) 5 MG immediate release tabletIndicatio ns:Acute Pain < 7 Day Supply Take 2 tablets (10 mg total) by mouth every 4 (four) hours as needed for Pain. Indications: Acute Pain < 7 Day Supply 60 tablet 07/17/20 Active naloxone (NARCAN) 4 MG/0.1ML nasal spray 1 spray by Nasal route as needed for Opioid reversal. may repeat every 2 to 3 minutes in alternating nostrils until medical assistance becomes available 1 each 07/17/20 25 026 Active WALKER MISC, DME,Indications :Physical deconditioning, Lumbar stenosis with neurogenic claudication 1 Device by Does not apply route as needed. 1 Device 07/24/20 026 Active carvedilol (COREG) 3.125 MG tablet Take 1 tablet (3.125 mg total) by mouth 2 (two) times daily. 60 tablet 2 08/13/20 Active lisinopril (PRINIVIL) 40 MG tablet Take 1 tablet (40 mg total) by mouth daily. 02/02/20 025 Discontinued lisinopril (PRINIVIL) 20 MG tablet Take 1 tablet (20 mg total) by mouth daily. 025 Discontinued Active Problems Problem Noted Date Diagnosed Date Physical deconditioning 07/20/2025 Lumbar stenosis with neurogenic claudication Lumbar radiculopathy 04/11/2025 Encounters Date Type Department Care Team Description 08/13/2025 11:30 AM CHAIR MENDER Office Visit [facility], [address] [address] Pamela Perez MD Chest Pain; Consult (Abn EKG) 08/13/2025 Travel 08/10/2025 Abstract [facility] [address] [address] Pamela Perez MD 08/07/2025 3:32 PM CHAIR MENDER - 08/07/2025 7:31 PM CHAIR MENDER Emergency [facility] [place] [address] Solomon Purcell MD Evaluation Of Abnormal Ekg Discharge Disposition: Home or Self Care (Routine Discharge) 08/07/2025 Travel 07/30/2025 9:45 AM CHAIR MENDER Home Care Visit [facility] Home [facility] [place] [address] [place] [address] Patricia Loza RN SN NON ADMIT SOC 07/20/2025 11:08 AM CDT - 07/26/2025 10:05 AM CDT Hospital Encounter [facility] Med/Surg [address] [place] [address] Houston Cote MD Suresh, Aditya Krishna, MD Discharge Disposition: Home with Home Health Care 07/20/2025 Travel 07/18/2025 Telephone [facility] [address] [place] [phone] Beatrice Naylor, mop worker (Swing bed referral to [facility] from [facility]/) 07/17/2025 10:34 AM CDT Anesthesia [place] [address] Herber Shin DO Jarvis, Brittany L, PERSONAL LINES SALES EXECUTIVE 07/17/2025 10:23 AM CDT - 07/17/2025 12:[address] [place] [address] Kala Ortiz MD LUMBAR DECOMPRESSION LUMBAR 2-3, LUMBAR 3-4, LUMBAR 4-5 07/17/2025 9:17 AM CDT - 07/20/2025 9:47 AM CDT Hospital Encounter [facility] 3[address] [place] [address] Kala Ortiz MD Discharge Disposition: Swing Bed 07/17/2025 Travel 07/12/2025 1:05 PM CDT - 07/12/2025 2:21 PM CDT Hospital Encounter [facility] [place] [address] Kala Ortiz MD Discharge Disposition: Home or Self Care (Routine Discharge) 07/12/2025 Travel 07/01/2025 6:26 PM CDT - 07/01/2025 11:[address] [facility] [place] [address] Sissy Aguayo PA Musculoskeletal Problem (RLQ abd pain ); Abdominal Pain Discharge Disposition: Home or Self Care (Routine Discharge) 07/01/2025 Travel 06/26/2025 1:07 PM CDT - 06/26/2025 11:59 PM CDT Hospital Encounter [facility] [place] [address] Kala Ortiz MD Discharge Disposition: Home or Self Care (Routine Discharge) 06/26/2025 Travel 06/18/2025 12:55 PM CDT - 06/18/2025 11:59 PM CDT Hospital Encounter [facility] [place] [address] [id number] Butch Newberry, KODAK Discharge Disposition: Home or Self Care (Routine Discharge) 06/18/2025 Travel from Last 3 Months Immunizations Immunization Administration Dates Next Due Abrysvo Respiratory Syncytia l Virus (RSV) 0.5 mL, PF 08/15/2024 Fluzone (IIV3, Trivalent, 0. 5 ML Prefilled Syringe) 07/26/2025(Deferred: Patient/family declined - Patient no longer wants to receive flu vac this admission) Fluzone High Dose (IIV, triv alent, 0.5mL) 08/15/2024,06/24/2021,06/01/2017,2015 Fluzone High Dose - >Age 65 (Prefilled Syringe) 08/09/2023,08/05/2022 MODERNA COVID-19 (12+) MRNA, LNP-S, PF, 100 MCG/ 0.5 ML DOSE 04/10/2022,08/14/2021 MODERNA COVID-19, 6-11 Prima ry (DARK BLUE CAP) (previous 18+ monovalent booster), mRNA, LNP-S,PF, 50 mcg/ 0.50mL dose 12/25/2020,11/27/2020 Pneumococcal (Pneumovax 23) 10/04/2020 Tdap (Generic) 07/09/2023 Family History Medical History Relation Comments Valve Disease Brother Cardiomyopathy Mother Heart Disease Mother Valve Disease Mother Relation Status Comments Brother Father Mother Social History Tobacco Use Types Packs/Day Years Used Date Smoking Tobacco: Former Cigarettes Passive Smoke Exposure: Never Smokeless Tobacco: Never Tobacco Cessation:Counseling Given: Not Answered Alcohol Use Standard Drinks/Week Comments Never 0 (1 standard drink = 0.6 oz pur e alcohol) Comments No Sex and Gender Information Value Date Recorded Sex Assigned at Female 03/02/2025 12:41 AM CDT Legal Sex Female 6:50 PM CDT Gender Identity Not on file Sexual Orientation Not on file Last Filed Vital Signs Vital Sign Reading Time Taken Comments Blood Pressure 148/84 08/13/2025 11:40 AM CHAIR MENDER Pulse 90 08/13/2025 11:40 AM CHAIR MENDER Temperature 36.8 C (98.2 F) 08/07/2025 2:54 PM CHAIR MENDER Respiratory Rate 16 08/07/2025 7:00 PM CHAIR MENDER Oxygen Saturation 96% 08/13/2025 11:40 AM CHAIR MENDER Inhaled Oxygen Concentration - - Weight 66.7 kg (147 lb) 08/13/2025 11:40 AM CHAIR MENDER Height 157.5 cm (5' 2) 08/13/2025 11:40 AM CHAIR MENDER Body Mass Index 26.89 08/13/2025 11:40 AM CHAIR MENDER Plan of Treatment Upcoming Encounters Date Type Department Care Team (Late st Contact Info) Description 09/13/2025 9:30 AM CHAIR MENDER [facility]ointment [facility] [place] [address] Pamela Perez MD [address] [facility] [address] [place] [address] 09/13/2025 10:30 AM CHAIR MENDER Appointment [facility] [address] Pamela Perez MD [address] [address] 09/13/2025 12:00 PM CHAIR MENDER Office Visit [facility], [address] [place] [address] Pamela Perez MD [address] [facility] [address] [place] [address] 10/02/2025 1:00 PM CHAIR MENDER Office Visit [facility], [facility] [address] [place] [address] Pamela Perez MD [address] [facility] [address] [place] [id number] Health Maintenance Due Date Last Done Comments ASCVD LDL 1950 ASCVD Statin 1950 Hepatitis C 1966 Zoster Vaccines (1 of 2) 1998 Annual Medicare Wellness Visit 2013 Dexa Scan (General) 2013 Pneumococcal Vaccine: 50+ Years (2 of 2 - PCV) 10/04/2021 10/04/2020 COVID-19 Vaccine ( season) 2025 04/10/2022, 04/10/2022, 08/14/2021, Additional history exists Influenza Adult (#1) 2025 08/15/2024, 08/09/2023, 08/05/2022, Additional history exists DTaP, Tdap and Td Vaccines (2 - Td or Tdap) 07/09/2033 07/09/2023 RSV Immunization or 60+ Years Completed 08/15/2024 Hepatitis A Vaccines Aged Out No long er eligible based on patient's age to complete this topic Meningococcal B Vaccine Aged Out No l onger eligible based on patient's age to complete this topic Meningococcal Vaccine Aged Out No ava celestine eligible based on patient's age to complete this topic RSV Immunizations Under 20 Months Aged Out No longer eligible based on patient's age to complete this topic Procedures Procedure Name Priority Date/Time Associated Diagnosis Comments CTA CHEST STAT 08/07/2025 5:14 PM CHAIR MENDER TROPONIN, QUANT STAT 08/07/2025 4:57 PM CHAIR MENDER URINALYSIS STAT 08/07/2025 3:51 PM CHAIR MENDER MAGNESIUM STAT 08/07/2025 3:51 PM CHAIR MENDER TROPONIN, QUANT STAT 08/07/2025 3:51 PM CHAIR MENDER COMPREHENSIVE METABOLIC PANEL STAT 08/07/2025 3:51 PM CHAIR MENDER HC CBC AUTO W/AUTO DIFF STAT 08/07/2025 3:51 PM CHAIR MENDER ECG 12-LEAD STAT 08/07/2025 3:39 PM CHAIR MENDER XR CHEST PA+LAT STAT 08/07/2025 3:34 PM CHAIR MENDER HC CBC AUTO W/AUTO DIFF Routine 07/21/2025 7:47 AM CDT HC COMPREHENSIVE METABOL PANEL Routine 07/21/2025 7:47 AM CDT SURG XR LUMB SPINE 1V Routine 07/17/2025 12:49 PM CDT LAMINEC/FACETECT/FO BAILEY,EACH ADDNL 07/17/2025 10:34 AM CDT SPINAL STENOSIS M48.00 Case Notes SCHED BY FAX 07/02/2025 [facility] PRETEST 07/12 @ 1300URGENT CASE- PER DR ORTIZ Special Needs SHORT STAY NEEDS RNFAC-ARM, STANDARD, JOSE RAMON FRAMEPRONE POSITION LAMINEC/FACETECT/FO BAILEY,LUMBAR 07/17/2025 10:34 AM CDT SPINAL STENOSIS M48.00 Case Notes SCHED BY FAX 07/02/2025 [facility] PRETEST 07/12 @ 1300URGENT CASE- PER DR ORTIZ Special Needs SHORT STAY NEEDS RNFAC-ARM, STANDARD, OJSE RAMON FRAMEPRONE POSITION HC PROTHROMBIN TIME (PT) STAT 07/12/2025 1:39 PM CDT Spinal stenosis Preop examination Lumbar radiculopathy HC PTT STAT 07/12/2025 1:39 PM CDT Spinal stenosis Preop examination Lumbar radiculopathy CT ABD+PEL W CON STAT 07/01/2025 8:50 PM CDT HC URINALYSIS AUTO W/O MICRO STAT 07/01/2025 6:34 PM CDT HC LIPASE STAT 07/01/2025 6:34 PM CDT HC COMPREHENSIVE METABOLIC PANEL STAT 07/01/2025 6:34 PM CDT HC CBC AUTO W/AUTO DIFF STAT 07/01/2025 6:34 PM CDT MRI CERV SPINE WO CON STAT 06/26/2025 2:05 PM CDT Cervical spondylosis from Last 3 Months Results * CTA CHEST (08/07/2025 5:14 PM CHAIR MENDER) Anatomical Region Laterality Modality Chest Computed Tomogra phy 08/07/2025 5:36 PM CHAIR MENDER Impressions 08/07/2025 5:41 PM CHAIR MENDER Impression: 1. No pulmonary embolism identified. 2. No acute chest disease. 3. Coronary artery calcifications. Ordered By: SOLOMON PURCELL Interpreted By: Clovis Palma MD, 08/07/2025 5:36 PM Narrative 08/07/2025 5:41 PM CHAIR MENDER [address] [address] Examination: CTA chest. Clinical Information: Chest pain. Recent lumbar surgery. Comparison:No comparison. Technique: IV contrast: 80 mL Isovue 370. Oral contrast: None. Technical comments: CTA of the chest was performed according to the pulmonary embolism protocol. Coronal MIP images were submitted for evaluation. Dose reduction: This CT exam was performed using one or more of the following dose reduction techniques: Automated exposure control, adjustment of the mA and/or kV according to patient size, and/or use of iterative reconstruction technique. Findings: PULMONARY VASCULATURE The pulmonary arteries are well-opacified and no intraluminal filling defect is identified. MEDIASTINUM Support tubes and lines: None. Base of neck/thyroid: Negative. Heart: Normal in size. No pericardial effusion. Coronary artery calcifications are present. No findings of right heart strain. The thoracic aorta appears normal in caliber. Lymph nodes: No supraclavicular, axillary, internal mammary, mediastinal, or hilar adenopathy. LUNGS AND PLEURA Lungs: Bilateral dependent atelectasis. Pleura: No pleural effusion, thickening, or calcification. UPPER ABDOMEN Unremarkable. BONES/SOFT TISSUES Multilevel thoracic spondylosis. Procedure Note Clovis Palma MD - 08/07/2025 [place] [address] Examination: CTA chest. Clinical Information: Chest pain. Recent lumbar surgery. Comparison:No comparison. Technique: IV contrast: 80 mL Isovue 370. Oral contrast: None. Technical comments: CTA of the chest was performed according to thepulmonary embolism protocol. Coronal MIP images were submitted forevaluation. Dose reduction: This CT exam was performed using one or more of thefollowing dose reduction techniques: Automated exposure control,adjustment of the mA and/or kV according to patient size, and/or use ofiterative reconstruction technique. Findings: PULMONARY VASCULATURE The pulmonary arteries are well-opacified and no intraluminal fillingdefect is identified. MEDIASTINUM Support tubes and lines: None. Base of neck/thyroid: Negative. Heart: Normal in size. No pericardial effusion. Coronary arterycalcifications are present. No findings of right heart strain. Thethoracic aorta appears normal in caliber. Lymph nodes: No supraclavicular, axillary, internal mammary, mediastinal,or hilar adenopathy. LUNGS AND PLEURA Lungs: Bilateral dependent atelectasis. Pleura: No pleural effusion, thickening, or calcification. UPPER ABDOMEN Unremarkable. BONES/SOFT TISSUES Multilevel thoracic spondylosis. Impression: 1. No pulmonary embolism identified. 2. No acute chest disease. 3. Coronary artery calcifications. Ordered By: SOLOMON PURCELL Interpreted By: Clovis Palma MD, 08/07/2025 5:36 PM Solomon Purcell MD CT Final Result * TROPONIN, QUANT (08/07/2025 4:57 PM CHAIR MENDER) Only the most recent of2 resultswithin the time period is included. Pathologist [facility] TROPONIN I HIGH SENSITIVITY 17 <54 ng/L 08/07/2025 5:30 PM CHAIR MENDER [facility] Comment: HIGH DOSES OF BIOTIN, TROPONIN-SPECIFIC AUTOANTIBODIES, AND ANTIBODY THERAPY CONTAINING HAMA MAY INTERFERE WITH THIS TEST RESULT. CORRELATION TO CLINICAL HISTORY AND PRESENTATION RECOMMENDED. BLOOD VENOUS BLOOD SPECIMEN / Unknown 08/07/2025 4:57 PM CHAIR MENDER Aleyda Ruiz APRN LABORATORY Final Result [facility] [address] [place] [address], * (ABNORMAL) URINALYSIS (08/07/2025 3:51 PM CHAIR MENDER) Pathologist [facility] SPECIMEN TYPE URINE CLEAN CATCH 08/07/2025 3:46 PM CHAIR MENDER [facility] COLOR (U) COLORLESS 08/07/2025 4:42 PM CHAIR MENDER [facility] TRANSPARENCY CLEAR 08/07/2025 4:42 PM CHAIR MENDER [facility] SPECIFIC GRAVITY (U) 1.005 1.001 - 1.030 08/07/2025 4:42 PM CHAIR MENDER [facility] U PH 6.5 5.0 - 9.0 08/07/2025 4:42 PM CHAIR MENDER [facility] LEUKOCYTES (U) NEGATIVE NEGATIVE 08/07/2025 4:42 PM CHAIR MENDER [facility] NITRITES NEGATIVE NEGATIVE 08/07/2025 4:42 PM CHAIR MENDER [facility] PROTEIN RANDOM (U) NEGATIVE <30 MG/DL 08/07/2025 4:42 PM CHAIR MENDER [facility] GLUCOSE (U) NORMAL NORMAL MG/DL 08/07/2025 4:42 PM CHAIR MENDER [facility] KETONES MG/DL (U) NEGATIVE NEGATIVE MG/DL 08/07/2025 4:42 PM CHAIR MENDER [facility] UROBILINOGEN NORMAL NORMAL MG/DL 08/07/2025 4:42 PM CHAIR MENDER [facility] BILIRUBIN (U) NEGATIVE NEGATIVE MG/DL 08/07/2025 4:42 PM [facility] BLOOD (U) 2+(A) NEGATIVE 08/07/2025 4:42 PM CHAIR MENDER [facility] WBC/HPF 1 <6 /HPF 08/07/2025 4:42 PM CHAIR MENDER [facility] RBC/HPF 5 <6 /HPF 08/07/2025 4:42 PM [facility] URINE URINE SPECIMEN OBTAINED BY CLEAN CATCH PROCEDURE / Unknown 08/07/2025 3:51 PM CHAIR MENDER us Aleyda Ruiz APRN URINE ORDERABLES Final Resul t [facility] [address] [place] [address], [place] [phone] * MAGNESIUM (08/07/2025 3:51 PM CHAIR MENDER) MAGNESIUM 2.1 1.8 - 2.4 MG/DL 08/07/2025 4:42 PM CHAIR MENDER [facility] BLOOD VENOUS BLOOD SPECIMEN / Unknown 08/07/2025 3:51 PM CHAIR MENDER Aleyda Ruiz APRN LABORATORY Final Result [facility] [address] [place] [address], [place] [phone] * (ABNORMAL) COMPREHENSIVE METABOLIC PANEL (08/07/2025 3:51 PM CHAIR MENDER) [facility] GLUCOSE 101(H) 70 - 99 MG/DL 08/07/2025 4:42 PM CHAIR MENDER [facility] BUN 5(L) 7 - 18 MG/DL 08/07/2025 4:42 PM CHAIR MENDER [facility] CREATININE S/P/B 0.77 0.55 - 1.02 MG/DL 08/07/2025 4:42 PM CHAIR MENDER [facility] SODIUM S/P/B 140 136 - 145 MMOL/L 08/07/2025 4:42 PM CHAIR MENDER [facility] POTASSIUM S/P/B 3.2(L) 3.5 - 5.1 MMOL/L 08/07/2025 4:42 PM CHAIR MENDER [facility] CHLORIDE S/P/B 106 97 - 115 MMOL/L 08/07/2025 4:42 PM CHAIR MENDER [facility] CO2 27.0 21 - 32 MMOL/L 08/07/2025 4:42 PM CHAIR MENDER [facility] CALCIUM S/P/B 9.3 8.5 - 10.1 MG/DL 08/07/2025 4:42 PM CHAIR MENDER [facility] BILIRUBIN TOTAL S/P/B 0.4 0.2 - 1.2 MG/DL 08/07/2025 4:42 PM CHAIR MENDER [facility] Comment: THIS ASSAY IS NOT RECOMMENDED FOR PATIENTS UNDERGOING TREATMENT WITH ELTROMBOPAG DUE TO THE POTENTIAL FOR FALSELY ELEVATED RESULTS. TOTAL PROTEIN S/P/B 7.1 6.4 - 8.2 G/DL 08/07/2025 4:42 PM CHAIR MENDER [facility] ALBUMIN S/P/B 3.9 3.4 - 5.0 G/DL 08/07/2025 4:42 PM CHAIR MENDER [facility] AST 21 15 - 37 U/L 08/07/2025 4:42 PM CHAIR MENDER [facility] ALT 19 14 - 55 U/L 08/07/2025 4:42 PM CHAIR MENDER [facility] ALKALINE PHOSPHATASE S/P/B 104 50 - 136 U/L 08/07/2025 4:42 PM [facility] ANION GAP 7.0 2 - 10 MMOL/L 08/07/2025 4:42 PM [facility] BUN CREATININE RATIO 6.5 6 - 26 08/07/2025 4:42 PM [facility] A/G RATIO 1.2 1.0 - 2.0 RATIO 08/07/2025 4:42 PM [facility] GFR ESTIMATE 79(L) >90 ML/MIN/1.7 3 M2 08/07/2025 4:42 PM [facility] Comment: NOTE: eGFR is not calculated for patients <18 years of age or gender unknown. This is an estimated GFR calculation using the new CKD EPI creatinine equation without race and so does not require a correction factor for race. This estimated GFR should not be used for calculating drug doses. BLOOD VENOUS BLOOD SPECIMEN / Unknown 08/07/2025 3:51 PM CHAIR MENDER Aleyda Ruiz APRN LABORATORY Final Result [facility] [address] [place] [address], * CBC W/DIFF AUTOMATED (08/07/2025 3:51 PM CHAIR MENDER) [facility] WBC 7.96 4.5 - 11.0 x10'3/uL 08/07/2025 4:18 PM CHAIR MENDER [facility] RBC 4.23 4.20 - 5.40 x10'6/uL 08/07/2025 4:18 PM [facility] HGB 13.1 12.0 - 16.0 G/DL 08/07/2025 4:18 PM [facility] HCT 38.4 38.0 - 48.0 % 08/07/2025 4:18 PM [facility] MCV 90.8 81.0 - 99.0 FL 08/07/2025 4:18 PM [facility] MCH 31.0 27.0 - 31.0 PG 08/07/2025 4:18 PM [facility] MCHC 34.1 32.0 - 36.0 G/DL 08/07/2025 4:18 PM [facility] RDW 13.0 11.5 - 14.5 % 08/07/2025 4:18 PM [facility] PLT 308 130 - 400 x10'3/uL 08/07/2025 4:18 PM [facility] MPV 9.3 9.3 - 12.2 FL 08/07/2025 4:18 PM [facility] DIFFERENTIAL TYPE AUTOMATED DIFFERENTIAL 08/07/2025 4:18 PM [facility] NEUTROPHILS % 61.0 % 08/07/2025 4:18 PM [facility] LYMPHOCYTES % 30.2 % 08/07/2025 4:18 PM [facility] MONOCYTES % 7.7 % 08/07/2025 4:18 PM CHAIR MENDER [facility] EOSINOPHILS 0.5 % 08/07/2025 4:18 PM CHAIR MENDER [facility] BASOPHILS 0.5 % 08/07/2025 4:18 PM CHAIR MENDER [facility] IMMATURE GRANS % 0.1 % 08/07/20 25 4:18 PM CHAIR MENDER [facility] ABS. NEUTROPHILS 4.86 1.80 - 7.70 x10'3/uL 08/07/2025 4:18 PM CHAIR MENDER [facility] ABS. LYMPHOCYTES 2.40 1.00 - 4.80 x10'3/uL 08/07/2025 4:18 PM CHAIR MENDER [facility] ABS. MONOCYTES 0.61 0.24 - 0.86 x10'3/uL 08/07/2025 4:18 PM CHAIR MENDER [facility] ABS. EOSINOPHILS 0.04 0.04 - 0.36 x10'3/uL 08/07/2025 4:18 PM CHAIR MENDER [facility] ABS. BASOPHILS 0.04 0.01 - 0.08 x10'3/uL 08/07/2025 4:18 PM CHAIR MENDER [facility] ABS. IMMATURE GRANULOCYTES 0.01 0.00 - 0.49 x10'3/uL 08/07/2025 4:18 PM CHAIR MENDER [facility] BLOOD VENOUS BLOOD SPECIMEN / Unknown 08/07/2025 3:51 PM CHAIR MENDER us Aleyda Ruiz APRN LABORATORY Final Result [facility] [address] [place] [address], * ECG 12 lead (08/07/2025 3:39 PM CHAIR MENDER) ECG QT 458 [facility] ([place]) RAD ECG QTC 532 [facility] ([place]) RAD 08/07/2025 3:39 PM CHAIR MENDER Narrative [facility] ([place]) RAD - 08/07/2025 9:[address] [facility] [facility] Test Date: 2025-08-07 Pat Name: JESSICA WARD Department: 41 Room: [facility] Gender: Female Craft Coordinator: [id number] : 1950 Requested By: ALEYDA RUIZ Order Number: [id number] Reading : Houston Beltran Measurements Intervals [place] Rate: 81 P: 68 AL: 156 QRS: -45 QRSD: 137 T: 84 QT: 458 QTc: 532 Interpretive Statements SINUS RHYTHM LEFT AXIS DEVIATION [QRS AXIS < -30] INTRAVENTRICULAR CONDUCTION DELAY [130+ ms QRS DURATION] Compared to ECG 03/01/2025 23:55:25 Left-axis deviation now present Intraventricular conduction delay now present Other ischemic changes, not STEMI Preliminary EKG Interpretation by LEVAR Jenkins R MENDER Procedure Note Houston Beltran MD - 08/07/2025 [facility] [address] [facility] Test Date: 2025-08-07 Pat Name: JESSICA RUBÉN Department: 41 Room: [facility] Gender: Female Craft Coordinator: [id number] : 1950 Requested By: ALEYDA RUIZ Order Number: [id number] Reading KEISHA Beltran Measurements Intervals [place] Rate: 81 P: 68 AL: 156 QRS: -45 QRSD: 137 T: 84 QT: 458 QTc: 532 Interpretive Statements SINUS RHYTHM LEFT AXIS DEVIATION [QRS AXIS < -30] INTRAVENTRICULAR CONDUCTION DELAY [130+ ms QRS DURATION] Compared to ECG 03/01/2025 23:55:25 Left-axis deviation now present Intraventricular conduction delay now present Other ischemic changes, not STEMI Preliminary EKG Interpretation by LEVAR Jenkins R MENDER us Aleyda Ruiz LOG DRIVER ECG ORDERABLES Final Result [facility] ([place]) RAD * XR CHEST PA+LAT (08/07/2025 3:34 PM CHAIR MENDER) Anatomical Region Laterality Modality Chest Radiographic Eve ging 08/07/2025 3:38 PM CHAIR MENDER Impressions 08/07/2025 3:40 PM CHAIR MENDER Impression: No acute findings. Referred By: Interpreted By: Chay Pyle MD, 08/07/2025 3:38 PM Narrative 08/07/2025 3:40 PM CHAIR MENDER [place] [address] Examination: Chest 2 View History: Chest pain DATE/TIME: 08/07/2025 3:23 PM Comparison: March 02, 2025 Technique: PA and lateral views were obtained. Findings: Heart size, mediastinal contours and pulmonary vasculature are within normal limits. No pulmonary consolidation, pleural effusion or pneumothorax. No acute osseous abnormality. Thoracic spondylosis. Procedure Note Chay Pyle MD - 08/07/2025 [place] [address] Examination: Chest 2 View History: Chest pain DATE/TIME: 08/07/2025 3:23 PM Comparison: March 02, 2025 Technique: PA and lateral views were obtained. Findings: Heart size, mediastinal contours and pulmonary vasculature arewithin normal limits. No pulmonary consolidation, pleural effusion orpneumothorax. No acute osseous abnormality. Thoracic spondylosis. Impression: No acute findings. Referred By: Interpreted By: Chay Pyle MD, 08/07/2025 3:38 PM Aleyda Ruiz APRN GENERAL IMAGING Final Result * (ABNORMAL) COMPREHENSIVE METABOLIC PANEL (07/21/2025 7:47 AM CDT) Only the most recent of2 resultswithin the time period is included. GLUCOSE 100(H) 70 - 99 MG/DL 07/21/2025 8:18 AM T [facility] BUN 7 7 - 18 MG/DL 07/21/2025 8:18 AM T [facility] CREATININE S/P/B 0.84 0.55 - 1.02 MG/DL 07/21/2025 8:18 AM T [facility] SODIUM S/P/B 138 136 - 145 MMOL/L 07/21/2025 8:18 AM T [facility] POTASSIUM S/P/B 3.7 3.5 - 5.1 MMOL/L 07/21/2025 8:18 AM T [facility] CHLORIDE S/P/B 99(L) 100 - 108 MMOL/L 07/21/2025 8:18 AM T [facility] CO2 34.3(H) 21 - 32 MMOL/L 07/21/2025 8:18 AM T [facility] CALCIUM S/P/B 8.8 8.5 - 10.1 MG/DL 07/21/2025 8:18 AM T [facility] BILIRUBIN TOTAL S/P/B 0.5 0.2 - 1.2 MG/DL 07/21/2025 8:18 AM T [facility] TOTAL PROTEIN S/P/B 6.6 6.4 - 8.2 G/DL 07/21/2025 8:18 AM T [facility] ALBUMIN S/P/B 3.1(L) 3.4 - 5.0 G/DL 07/21/2025 8:18 AM CDT [facility] AST 27 15 - 37 U/L 07/21/2025 8:18 AM T [facility] ALT 15 14 - 55 U/L 07/21/2025 8:18 AM CDT [facility] ALKALINE PHOSPHATASE S/P/B 83 50 - 136 U/L 07/21/2025 8:18 AM T [facility] ANION GAP 4.7(L) 5 - 15 MMOL/L 07/21/2025 8:18 AM T [facility] BUN CREATININE RATIO 8.3 6 - 26 07/21/2025 8:18 AM T [facility] A/G RATIO 0.9(L) 1.0 - 2.0 RATIO 07/21/2025 8:18 AM [facility] GFR ESTIMATE 72(L) >90 ML/MIN/1.7 3 M2 07/21/2025 8:18 AM T [facility] Comment: NOTE: eGFR is not calculated for patients <18 years of age. This is an estimated GFR calculation using the new CKD EPI creatinine equation without race and so does not require a correction factor for race. This estimated GFR should not be used for calculating drug doses. 07/21/2025 7:47 AM CDT Houston Cote MD LABORATORY Final Result [facility] [address] [place] [address], * (ABNORMAL) CBC W/DIFF AUTOMATED (07/21/2025 7:47 AM CDT) Only the most recent of2 resultswithin the time period is included. WBC 4.70 4.4 - 11.0 x10'3/uL 07/21/2025 8:03 AM T [facility] RBC 3.55(L) 4.50 - 5.10 x10'6/uL 07/21/2025 8:03 AM [facility] HGB 11.4(L) 12.3 - 15.3 G/DL 07/21/2025 8:03 AM T [facility] HCT 34.0(L) 35.9 - 44.6 % 07/21/2025 8:03 AM T [facility] MCV 95.8 80.0 - 96.0 FL 07/21/2025 8:03 AM [facility] MCH 32.1(H) 25.3 - 30.9 PG 07/21/2025 8:03 AM [facility] MCHC 33.5 31.0 - 34.1 G/DL 07/21/2025 8:03 AM T [facility] RDW 12.8 12.4 - 15.1 % 07/21/2025 8:03 AM T [facility] PLT 176 151 - 353 x10'3/uL 07/21/2025 8:03 AM [facility] MPV 9.6 9.6 - 12.0 FL 07/21/2025 8:03 AM [facility] RBC MORPHOLOGY NORMAL 07/21/2025 8:03 AM T [facility] PLT MORPH. NORMAL 07/21/2025 8:03 AM T [facility] WBC MORPHOLOGY NORMAL 07/21/2025 8:03 AM [facility] LYMPHOCYTES % 32.3 15.8 - 45.0 % 07/21/2025 8:03 AM T [facility] NEUTROPHILS % 56.5 42.1 - 71.9 % 07/21/2025 8:03 AM CDT [facility] MONOCYTES % 8.3 5.7 - 12.5 % 07/21/2025 8:03 AM CDT [facility] EOSINOPHILS 2.1 0.0 - 5.6 % 07/21/2025 8:03 AM CDT [facility] BASOPHILS 0.4 0.0 - 1.3 % 07/21/2025 8:03 AM CDT [facility] ABS. NEUTROPHILS 2.65 1.40 - 6.00 x10'3/uL 07/21/2025 8:03 AM CDT [facility] IMMATURE GRANS % 0.4 0.0 - 0.5 % 07/21/2025 8:03 AM CDT [facility] ABS. LYMPHOCYTES 1.52 0.80 - 4.70 x10'3/uL 07/21/2025 8:03 AM CDT [facility] 07/21/2025 7:47 AM CDT Houston Cote MD LABORATORY Final Result Performing Organization Address City/State/[facility] Co de Phone Number [facility] [address] [place] [address], * SURG XR LUMB SPINE 1V (07/17/2025 12:49 PM CDT) Anatomical Region Laterality Modality Spine Radiographic Eve ging 07/17/2025 3:38 PM CDT Impressions 07/17/2025 3:38 PM CDT Impression: No radiologic interpretation will be issued. The report and documentation of this exam will reside in the patient's permanent medical record and in the attending physician's procedure note. Ordered By: KALA ORTIZ Interpreted By: Denny Russell MD, 07/17/2025 3:38 PM Narrative 07/17/2025 3:38 PM CDT [facility] [address] [place] [address] FLUOROSCOPY CONTROL ONLY Procedure Note Denny Russell MD - 07/17/2025 [facility] [address] [place] [address] FLUOROSCOPY CONTROL ONLY Impression: No radiologic interpretation will be issued. The report and documentationof this exam will reside in the patient's permanent medical record and inthe attending physician's procedure note. Ordered By: KALA ORTIZ Interpreted By: Denny Russell MD, 07/17/2025 3:38 PM Kala Ortiz MD IMAGES ONLY Final Result * PARTIAL THROMBOPLASTIN TIME,PTT (07/12/2025 1:39 PM CDT) PTT 29.2 25.1 - 36.5 SEC 07/12/2025 2:34 PM CDT [facility] 07/12/2025 1:39 PM CDT Kala Ortiz MD LABORATORY Final Result [facility] [address] [place] [address], [place] [phone] * PROTIME/INR, VENOUS (07/12/2025 1:39 PM CDT) PROTIME 11.9 10.2 - 12.9 SEC 07/12/2025 2:34 PM CDT [facility] INR 1.0 07/12/2025 2:34 PM CDT [facility] Comment: Recommended INR Therapeutic Goals: 2.0-3.0 Routine Therapy 2.5-3.5 Mechanical Prosthetic Valves (High Risk) 07/12/2025 1:39 PM CDT Kala Ortiz MD LABORATORY Final Result [facility] [address] [place] [address], [place] [phone] * CT ABD+PEL W CON (07/01/2025 8:50 PM CDT) Anatomical Region Laterality Modality Abdomen Computed Tomogra phy 07/01/2025 10:1 9 PM CDT Impressions 07/01/2025 10:30 PM CDT IMPRESSION: NO ACUTE ABDOMINAL OR PELVIC PROCESSES. DIFFUSE HEPATIC STEATOSIS WITH FOCAL INCREASED FATTY INFILTRATION ADJACENT TO FALCIFORM LIGAMENT. MILD HEPATOMEGALY. GALLSTONE IN THE GALLBLADDER WITH NO CHOLECYSTITIS. COLONIC DIVERTICULA WITH NO DIVERTICULITIS. INCIDENTAL NOTE MADE OF MULTILEVEL BILATERAL LUMBAR SPINAL NEURAL FORAMINAL NARROWING SECONDARY TO DISC ENDPLATE COMPLEXES COMBINED WITH MULTILEVEL FACET AND LIGAMENTOUS HYPERTROPHY AND SPURRING. Referred By: Interpreted By: Fredrick [place] MD, 07/01/2025 10:19 PM Narrative 07/01/2025 10:30 PM CDT [facility] [address] [place], [place] [address] EXAM: CT ABD+PEL W CON INDICATION: Right lower quadrant and right lower back pain for several days. TECHNIQUE: CT the abdomen and pelvis, from lung bases to the pubic symphysis, was performed. Received 100 mL Isovue-370 with no adverse reaction. Multiplanar reformatted images were created and reviewed. A dose lowering technique was used for this procedure, which may include, but is not limited to, dose reduction technique, automated exposure control, the use of iterative reconstruction, and ALARA (As Low As Reasonably Achievable) / Image Gently techniques. COMPARISON EXAM: None FINDINGS: There is no consolidation or effusion in either lung base. Fibroatelectatic change. Mild diffuse hepatic steatosis with focal increased fatty infiltration adjacent to the falciform ligament. Liver is borderline enlarged. Spleen is normal in size. Small accessory splenule incidentally noted. There is a 5 mm gallstone in the dependent gallbladder with no cholecystitis. Pancreas is unremarkable. No pancreatic or biliary ductal dilatation. Normal adrenal glands. Couple small bilateral renal cortical cysts. No hydronephrosis. Urinary bladder is partially collapsed. Uterus and ovaries are surgically absent and or atrophic. There is no bowel obstruction or free air. Normal appendix. There are extensive descending and sigmoid colon diverticula with no diverticulitis. No abdominal or pelvic adenopathy or free fluid. Moderate atheromatous disease of the arch was abdominal aorta with no aneurysm. Visualized portions of the thoracolumbar and sacral spine and pelvis are grossly intact. There is incidental note of multiple disc endplate complexes combined with considerable multilevel facet hypertrophy and spurring. This appears to cause multiple levels of moderate severe bilateral neural foraminal narrowing. Procedure Note Fredrick [place] MD - 07/01/[address] [address] EXAM: CT ABD+PEL W CON INDICATION: Right lower quadrant and right lower back pain for severaldays. TECHNIQUE: CT the abdomen and pelvis, from lung bases to the pubicsymphysis, was performed. Received 100 mL Isovue-370 with no adversereaction. Multiplanar reformatted images were created and reviewed. A dose lowering technique was used for this procedure, which may include,but is not limited to, dose reduction technique, automated exposurecontrol, the use of iterative reconstruction, and ALARA (As Low AsReasonably Achievable) / Image Gently techniques. COMPARISON EXAM: None FINDINGS: There is no consolidation or effusion in either lung base.Fibroatelectatic change. Mild diffuse hepatic steatosis with focalincreased fatty infiltration adjacent to the falciform ligament. Liver isborderline enlarged. Spleen is normal in size. Small accessory splenuleincidentally noted. There is a 5 mm gallstone in the dependentgallbladder with no cholecystitis. Pancreas is unremarkable. Nopancreatic or biliary ductal dilatation. Normal adrenal glands. Couplesmall bilateral renal cortical cysts. No hydronephrosis. Urinary bladderis partially collapsed. Uterus and ovaries are surgically absent and oratrophic. There is no bowel obstruction or free air. Normal appendix.There are extensive descending and sigmoid colon diverticula with nodiverticulitis. No abdominal or pelvic adenopathy or free fluid.Moderate atheromatous disease of the arch was abdominal aorta with noaneurysm. Visualized portions of the thoracolumbar and sacral spine andpelvis are grossly intact. There is incidental note of multiple discendplate complexes combined with considerable multilevel facet hypertrophyand spurring. This appears to cause multiple levels of moderate severebilateral neural foraminal narrowing. IMPRESSION: NO ACUTE ABDOMINAL OR PELVIC PROCESSES. DIFFUSE HEPATIC STEATOSIS WITH FOCAL INCREASED FATTY INFILTRATION ADJACENTTO FALCIFORM LIGAMENT. MILD HEPATOMEGALY. GALLSTONE IN THE GALLBLADDER WITH NO CHOLECYSTITIS. COLONIC DIVERTICULA WITH NO DIVERTICULITIS. INCIDENTAL NOTE MADE OF MULTILEVEL BILATERAL LUMBAR SPINAL NEURALFORAMINAL NARROWING SECONDARY TO DISC ENDPLATE COMPLEXES COMBINED WITHMULTILEVEL FACET AND LIGAMENTOUS HYPERTROPHY AND SPURRING. Referred By: Interpreted By: Fredrick [place] MD, 07/01/2025 10:[address] Final Result * (ABNORMAL) URINALYSIS (07/01/2025 6:34 PM CDT) SPECIMEN TYPE URINE CLEAN CATCH 07/01/2025 6:32 PM CDT [facility] COLOR (U) COLORLESS 07/01/2025 6:49 PM CDT [facility] TRANSPARENCY CLEAR 07/01/2025 6:49 PM CDT [facility] SPECIFIC GRAVITY (U) 1.006 1.001 - 1.030 07/01/2025 6:49 PM CDT [facility] U PH 5.5 5.0 - 9.0 07/01/2025 6:49 PM CDT [facility] LEUKOCYTES (U) NEGATIVE NEGATIVE 07/01/2025 6:49 PM CDT [facility] NITRITES NEGATIVE NEGATIVE 07/01/2025 6:49 PM CDT [facility] PROTEIN RANDOM (U) NEGATIVE <30 MG/DL 07/01/2025 6:49 PM CDT [facility] GLUCOSE (U) NORMAL NORMAL MG/DL 07/01/2025 6:49 PM CDT [facility] KETONES MG/DL (U) NEGATIVE NEGATIVE MG/DL 07/01/2025 6:49 PM CDT [facility] UROBILINOGEN NORMAL NORMAL MG/DL 07/01/2025 6:49 PM CDT [facility] BILIRUBIN (U) NEGATIVE NEGATIVE MG/DL 07/01/2025 6:49 PM CDT [facility] BLOOD (U) 1+(A) NEGATIVE 07/01/2025 6:49 PM CDT [facility] WBC/HPF 1 <6 /HPF 07/01/2025 6:49 PM CDT [facility] RBC/HPF 1 <6 /HPF 07/01/2025 6:49 PM CDT [facility] BACTERIA (U) RARE(A) NONE /HPF 07/01/2025 6:49 PM CDT [facility] SQUAMOUS EPITHELIALS RARE /HPF 07/01/2025 6:49 PM CDT [facility] URINE SPECIMEN OBTAINED BY CLEAN CATCH PROCEDURE / Unknown 07/01/2025 6:34 PM CDT us Sissy CRISTOBAL URINE ORDERABLES Final Result [facility] [address] [place] [address], [place] [phone] * LIPASE (07/01/2025 6:34 PM CDT) LIPASE 25 13 - 75 UNITS/L 07/01/2025 7:02 PM CDT [facility] 07/01/2025 6:34 PM CDT Sissy CRISTOBAL LABORATORY Final Result [facility] [address] [place] [address], [place] [phone] * MRI CERV SPINE WO CON (06/26/2025 2:05 PM CDT) Anatomical Region Laterality Modality Spine Magnetic Resonan ce 06/26/2025 2:26 PM CDT Impressions 06/26/2025 2:45 PM CDT IMPRESSION: 1. Interbody spacer at C7/T1 with bony fusion of the C6/C7 and C7/T1 disc spaces. Bony fusion of C2/C3 facet joints. No acute osseous abnormality. 2. Severe neuroforaminal stenosis on the right at C1/C2, C3/C4, C4/C5 and C5/C6. Moderate neuroforaminal stenosis on the right at T1/T2. 3. Severe neuroforaminal stenosis on the left at C1/C2 and C5/C6. Moderate neuroforaminal stenosis on the left at T1/2. 4. Mild to moderate central canal stenosis at C5/C6 due to small posterior disc/osteophyte complex. No cervical cord signal abnormality. Referred By: KALA ORTIZ Interpreted By: Aleyda Wilkinson MD, 06/26/2025 2:26 PM Narrative 06/26/2025 2:45 PM CDT [facility] [address] [place], [place] [address] EXAMINATION: MRI of the cervical spine without contrast 06/26/2025 INDICATION: Cervical spondylosis, neck pain TECHNIQUE: Multiplanar multisequence or imaging cervical spine was performed without intravenous contrast. COMPARISON: None FINDINGS: //There is a straightening of the normal cervical lordosis. Interbody spacer noted at C7/T1. There is bony fusion of C6/C7 and C7/T1 disc spaces. There is preservation of vertebral body heights. Bone marrow signal is within normal limits. No acute fracture or dislocation. No ligamentous discontinuity or signal. Partially visualized intracranial contents are unremarkable. The cervical spinal cord is unremarkable in course caliber contour and signal. No prevertebral edema. No paraspinal mass or fluid collection. No stenosis at the foramen magnum. C1/C2: Severe joint space narrowing and osteophytosis causing severe bilateral neural foraminal stenosis. C2/C3: Bony fusion of the facet joint spaces C3/C4: Hypertrophic facet arthropathy causing severe bilateral foraminal stenosis C4/5: Disc space narrowing with small posterior disc/osteophyte complex, uncovertebral arthropathy and facet arthropathy causing severe right neural foraminal stenosis and mild left neural foraminal stenosis C5/C6: Disc space narrowing with broad-based posterior disc/osteophyte complex, uncovertebral arthropathy and facet arthropathy causing mild to moderate central canal stenosis and severe bilateral foraminal stenosis. The thecal sac measures 6 mm C6/C7: Bony fusion of the disc spaces and mild right-sided facet arthropathy C7/T1: Disc space narrowing with mild facet arthropathy causing mild bilateral foraminal stenosis T1/T2: Disc space narrowing disc bulging, uncovertebral arthropathy and facet arthropathy causing mild central canal stenosis and moderate bilateral foraminal stenosis. The thecal sac measures 7 mm T2/T3: Disc space narrowing disc bulging and facet arthropathy causing mild bilateral foraminal stenosis T3/T4: Facet arthropathy. Procedure Note Aleyda Wilkinson MD - 06/26/2025 [facility] [address] [place], [place] [address] EXAMINATION: MRI of the cervical spine without contrast 06/26/2025 INDICATION: Cervical spondylosis, neck pain TECHNIQUE: Multiplanar multisequence or imaging cervical spine wasperformed without intravenous contrast. COMPARISON: None FINDINGS: //There is a straightening of the normal cervical lordosis.Interbody spacer noted at C7/T1. There is bony fusion of C6/C7 and C7/T1disc spaces. There is preservation of vertebral body heights. Bone marrow signal iswithin normal limits. No acute fracture or dislocation. No ligamentousdiscontinuity or signal. Partially visualized intracranial contents are unremarkable. The cervicalspinal cord is unremarkable in course caliber contour and signal. Noprevertebral edema. No paraspinal mass or fluid collection. No stenosis at the foramen magnum. C1/C2: Severe joint space narrowing and osteophytosis causing severebilateral neural foraminal stenosis. C2/C3: Bony fusion of the facet joint spaces C3/C4: Hypertrophic facet arthropathy causing severe bilateral foraminalstenosis C4/5: Disc space narrowing with small posterior disc/osteophyte complex,uncovertebral arthropathy and facet arthropathy causing severe rightneural foraminal stenosis and mild left neural foraminal stenosis C5/C6: Disc space narrowing with broad-based posterior disc/osteophytecomplex, uncovertebral arthropathy and facet arthropathy causing mild tomoderate central canal stenosis and severe bilateral foraminal stenosis.The thecal sac measures 6 mm C6/C7: Bony fusion of the disc spaces and mild right-sided facetarthropathy C7/T1: Disc space narrowing with mild facet arthropathy causing mildbilateral foraminal stenosis T1/T2: Disc space narrowing disc bulging, uncovertebral arthropathy andfacet arthropathy causing mild central canal stenosis and moderatebilateral foraminal stenosis. The thecal sac measures 7 mm T2/T3: Disc space narrowing disc bulging and facet arthropathy causingmild bilateral foraminal stenosis T3/T4: Facet arthropathy. IMPRESSION: 1. Interbody spacer at C7/T1 with bony fusion of the C6/C7 and C7/T1 discspaces. Bony fusion of C2/C3 facet joints. No acute osseousabnormality. 2. Severe neuroforaminal stenosis on the right at C1/C2, C3/C4, C4/C5 andC5/C6. Moderate neuroforaminal stenosis on the right at T1/T2. 3. Severe neuroforaminal stenosis on the left at C1/C2 and C5/C6.Moderate neuroforaminal stenosis on the left at T1/2. 4. Mild to moderate central canal stenosis at C5/C6 due to smallposterior disc/osteophyte complex. No cervical cord signal abnormality. Referred By: KALA ORTIZ Interpreted By: Aleyda Wilkinson MD, 06/26/2025 2:26 PM us Kala Ortiz MD MRI Final Result from Last [address] [place] [address] [employer] Advance Directives * Full Code (Latest Code Status on File) Date Activated Date Inactivated Comments 07/20/2025 11:32 AM 07/26/2025 12:17 PM Care Teams Animal Surgeon Relationship Specialty Start Date End Date Gustavo Kate MD [address] [place] [phone] PCP - General INTERNAL MEDICINE 08/20/25
--- OUTSIDE RECORDS SUMMARY | 2025-09-11 16:58 | XMS_ITS | Clinical Summary ---
Author Organization [facility] Address [address] [place] [address] Care Team Providers Care Saw Maker Name Role Phone Sebas Snow MD Primary Care Provider + Source Comments [facility],non-owned Affiliates and Associated Physician Practices is amultiple site organization consisting of ambulatory clinics and hospital sitesin [place], [place] and [place]. This disclosure is being madepursuant to the Care Everywhere program and may not contain all information available regarding this patient. 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 N/A: Spine Cervical [employer] 04/27/2017 [id number] / / [id number] Putty Grft Bone Dbm [employer] 1cc Implanted:Qty : 1 on 04/13/2013 by Juan C Taylor MD at [facility] N/A: Spine Cervical Spinal [employer] 11/24/2015 [id number] / / [id number] Space Peek 7 X 16 X 14mm Implanted:Qty : 1 on 04/13/2013 by Juan C Taylor MD at [facility] N/A: Spine Cervical Med[employer] 12/05/2020 [id number] / / [id number] Advance Directives * FULL RESUSCITATION (Latest Code Status on File) Date Activated Date Inactivated Comments 04/13/2013 11:57 AM 04/14/2013 5:49 PM Care Teams Saw Maker Relationship Specialty Start Date End Date Sebas Snow MD [address] [place] [id number] PCP - General Family Medicine 02/27/13
== END 2025-09-11 14:29 | disposition home or self-care (01) ==
PROVIDERS: PCP Internal Medicine; Visit Provider Internal Medicine
DX: I65.23 Occlusion and stenosis of bilateral carotid arteries (principal); R09.89 Other specified symptoms and signs involving the circulatory and respiratory systems
CPT/HCPCS: 93880